=== PATIENT | female | born 1955 | race Caucasian/White ===

== ENCOUNTER 2023-04-21 05:13 | Observation (INO) ==
--- NOTE | 2023-03-01 16:16 | PAT Medication Instructions ---
Medication Instructions Date of Service March 01, 2023 Home Medications atorvastatin 40 mg tablet 40 mg PO HS biotin 5,000 mcg disintegrating tablet 5,000 mcg PO QAM calcium polycarbophil 625 mg tablet (FiberCon) 625 mg PO QAM cholecalciferol (vitamin D3) 50 mcg (2,000 unit) capsule (Vitamin D3) 50 mcg PO QAM diphenhydramine HCl 25 mg capsule (Benadryl) 25 mg PO HS PRN allergies donepezil 5 mg tablet (Aricept) 5 mg PO HS famotidine 20 mg tablet 20 mg PO HS gabapentin 300 mg tablet,extended release 24 hr 300 mg PO HS levothyroxine 50 mcg tablet 50 mcg PO QAM lorazepam 0.5 mg tablet (Ativan) 0.5 mg PO HS PRN sleep/anxiety losartan 25 mg tablet 25 mg PO HS magnesium 200 mg tablet 400 mg PO QAM meloxicam 15 mg tablet 15 mg PO HS metoprolol succinate 25 mg tablet,extended release 24 hr 25 mg PO HS omega 1-ohy-vlb-fish oil 1,200 mg (144 mg-216 mg) capsule (Fish Oil) 1 cap PO QAM omeprazole 40 mg capsule,delayed release 40 mg PO QAM riboflavin (vitamin B2) 100 mg tablet (Vitamin B-2) 400 mg PO QAM ASK your surgeon for instructions meloxicam 15 mg tablet 15 mg PO HS STOP taking 2 weeks before surgery biotin 5,000 mcg disintegrating tablet 5,000 mcg PO QAM omega 2-wqr-[id number]-fish oil 1,200 mg (144 mg-216 mg) capsule (Fish Oil) 1 cap PO QAM DO NOT take the morning of surgery calcium polycarbophil 625 mg tablet (FiberCon) 625 mg PO QAM cholecalciferol (vitamin D3) 50 mcg (2,000 unit) capsule (Vitamin D3) 50 mcg PO QAM magnesium 200 mg tablet 400 mg PO QAM riboflavin (vitamin B2) 100 mg tablet (Vitamin B-2) 400 mg PO QAM Take morning of surgery With a small sip of water, OTHERWISE NOTHING TO EAT OR DRINK AFTER MIDNIGHT: levothyroxine 50 mcg tablet 50 mcg PO QAM omeprazole 40 mg capsule,delayed release 40 mg PO QAM Take evening before surgery atorvastatin 40 mg tablet 40 mg PO HS diphenhydramine HCl 25 mg capsule (Benadryl) 25 mg PO HS PRN allergies (if needed) donepezil 5 mg tablet (Aricept) 5 mg PO HS famotidine 20 mg tablet 20 mg PO HS gabapentin 300 mg tablet,extended release 24 hr 300 mg PO HS lorazepam 0.5 mg tablet (Ativan) 0.5 mg PO HS PRN sleep/anxiety (if needed) losartan 25 mg tablet 25 mg PO HS metoprolol succinate 25 mg tablet,extended release 24 hr 25 mg PO HS Other Notes If you have any questions please call us at [phone] or [phone] or [phone] or [phone]
--- NOTE | 2023-03-08 10:24 | Anesthesiology Consultation ---
Date of Service March 08, 2023 Assessment & Plan (1) Encounter for pre-operative examination: Chart Review Chart Review: Acceptable Risk for Surgery (pending PCP clearance scheduled 03/14/23 and response regarding hyperkalemia ) and Patient seen in Pre Admission Testing - Awaiting PCP clearance 03/14/23 ([facility])- please fax preop testing to PCP office (need response on hyperkalemia) - Patient not an idea OPJ candidate (currently 23 hour observation) Per PAT appt on 03/08/23, no recent illness/disease exposures, illness related symptoms, or recent illness/disease positive tests. Will leave to surgeon's d iscretion if preop Covid testing needed Teaching & Discussion Pre-Anesthesia Teaching/Discussion Notes: Instructed NPO after midnight before surgery,except medications with 15 cc of water. Medication instructions provided according to the [facility] guidelines. History Surgery Operation Date: 04/06/23 09:30 Proposed Procedures p Right Total Knee Arthroplasty - Maverick Zavala MD Height/Weight Height: 5 ft 1 in Weight: 77.2 kg Allergies Allergy/AdvReac Type Severity Reaction Status Date / Time Sulfa (Sulfonamide Allergy systemic Verified 03/01/23 14:25 Antibiotics) yeast infection, rash Medications Home Medications Medication Instructions Recorded Confirmed Last Taken atorvastatin 40 mg tablet 40 mg PO HS 03/01/23 03/01/23 Unknown biotin 5,000 mcg disintegrating 5,000 mcg PO QAM 03/01/23 03/01/23 Unknown tablet calcium polycarbophil 625 mg 625 mg PO QAM 03/01/23 03/01/23 Unknown tablet (FiberCon) cholecalciferol (vitamin D3) 50 50 mcg PO QAM 03/01/23 03/01/23 Unknown mcg (2,000 unit) capsule (Vitamin D3) diphenhydramine HCl 25 mg capsule 25 mg PO HS PRN allergies 03/01/23 03/01/23 Unknown (Benadryl) donepezil 5 mg tablet (Aricept) 5 mg PO HS 03/01/23 03/01/23 Unknown famotidine 20 mg tablet 20 mg PO HS 03/01/23 03/01/23 Unknown gabapentin 300 mg tablet,extended 300 mg PO HS 03/01/23 03/01/23 Unknown release 24 hr levothyroxine 50 mcg tablet 50 mcg PO QAM 03/01/23 03/01/23 Unknown lorazepam 0.5 mg tablet (Ativan) 0.5 mg PO HS PRN sleep/anxiety 03/01/23 03/01/23 Unknown losartan 25 mg tablet 25 mg PO HS 03/01/23 03/01/23 Unknown magnesium 200 mg tablet 400 mg PO QAM 03/01/23 03/01/23 Unknown meloxicam 15 mg tablet 15 mg PO HS 03/01/23 03/01/23 Unknown metoprolol succinate 25 mg 25 mg PO HS 03/01/23 03/01/23 Unknown tablet,extended release 24 hr omega 9-lyc-uww-fish oil 1,200 mg 1 cap PO QAM 03/01/23 03/01/23 Unknown (144 mg-216 mg) capsule (Fish Oil) omeprazole 40 mg capsule,delayed 40 mg PO QAM 03/01/23 03/01/23 Unknown release riboflavin (vitamin B2) 100 mg 400 mg PO QAM 03/01/23 03/01/23 Unknown tablet (Vitamin B-2) Past Medical History Medical History Seasonal allergies Stable currently Snoring no witnessed apnea no hx of sleep study GERD (gastroesophageal reflux disease) well controlled and stable Hypothyroidism Arthritis Hyperlipidemia Hypertension Migraines Exercise / Class Metabolic Activity II 4-5 Yardwork/Stairs/Walk up hill (one flight of stairs - no chest pain or SOB ) Past Surgical History Surgical History History of dilatation and curettage Hx of hammer toe correction History of bilateral tubal ligation Hx of section x2 History of esophagogastroduodenoscopy (EGD) Hx of colonoscopy Hx of oral surgery H/O wisdom tooth extraction x1 Past Anesthesia History No Hx of Anesthesia Complications and No Family Hx of Anesthesia Complications History of PONV No Hx of PONV and Hx of Motion Sickness (mild ) Social History Smoking Status: Never smoker Do You Dip or Chew Tobacco: No Hx Alcohol Use: No Hx Substance Use: No substance use type: does not use Review of Systems - Palpitations - had event monitor last month - no arrhythmias Patient denies chest pain, shortness of breath, dyspnea on exertion, cough, wheezing. No hx of seizures, stroke, HI. No hx of blood clots or blood transfusions Physical Exam Vital Signs VITALS BP 169/89 (patient will recheck BP later today at home and call if elevated; has PCP preop appt 03/14/23) P 54 TEMP 97.4 SP02 98% RESP 16 Constitutional no acute distress ENMT Mouth: no TMJ clicking Thyromental Distance: < 3.5 Finger Breadths (3.0) Mallampati Class: III Crowns to side teeth and molars Neck + limited neck extension (mild) Respiratory normal respiratory effort; no respiratory distress Auscultation: lungs clear to auscultation bilaterally; no wheezes Cardiovascular Rate/Rhythm: regular rate and regular rhythm Heart Sounds: no murmur Vessels: no carotid bruit Musculoskeletal Spine: no pain with cervical ROM Extremities: extremities normal to inspection Psychiatric Orientation: alert Lab Results Anesthesia Preop Results Results Anesthesia Widget: WBC 5.40 K/ul (4.8-10.8) 03/08/23 Hgb 14.2 g/dl (12.0-16.0) 03/08/23 Hct 41.2 % (37.0-47.0) 03/08/23 Plt 212 K/uL (130-400) 03/08/23 Na 138 mmol/L (136-145) 03/08/23 K 5.2 mmol/L (3.5-5.1) H 03/08/23 Cl 104 mmol/L (98-107) 03/08/23 CO2 29 mmol/L (21-32) 03/08/23 BUN 19 mg/dl (6-23) 03/08/23 Creat 0.93 mg/dl (0.6-1.2) 03/08/23 Glucose Level 90 mg/dl (70-99(Fasting)) 03/08/23 PT 10.5 Seconds (9.0-12.0) 03/08/23 PTT 27.7 Seconds (21.0-31.0) 03/08/23 INR 1.0 (0.9-1.1) 03/08/23 Urine Color Yellow 03/08/23 Urine Appearance Clear (Clear) 03/08/23 Urine pH 7.0 (4.5-7.5) 03/08/23 Urine Specific [place] 1.006 (1.000-1.030) 03/08/23 Urine Protein Negative (Negative) 03/08/23 Urine Glucose (UA) Negative (Negative) 03/08/23 Urine Ketones Negative (Negative) 03/08/23 Urine Blood Negative (Negative) 03/08/23 Urine Nitrite Negative (Negative) 03/08/23 Urine Bilirubin Negative (Negative) 03/08/23 Urine Urobilinogen Negative (Negative) 03/08/23 Urine Leukocyte Esterase Negative (Negative) 03/08/23 Blood Type A Positive 03/08/23 Antibody Screen NEGATIVE 03/08/23 Testing Laboratory Results - Hyperkalemia- did inform PCP's office via phone- has preop appt 03/14/23 Electrocardiogram Date: 03/08/23 Findings: + SB @ (55bpm) Left axis deviation Chest X-Ray Date: 03/08/23 Findings: + NAD FINDINGS: Cardiac mediastinal and hilar silhouettes are within normal limits. No pneumothorax, pleural effusion, airspace consolidation or pulmonary edema. Mild hyperinflation. The bones appear grossly intact Other Testing Event monitor 12/14/22= Predominant underlying rhythm was Sinus Rhythm with average heart rate 60 BPM. Occasional (17) Supraventricular Tachycardia runs occurred, the longest lasting 17 beats. The mechanism of Supraventricular Tachycardia appeared to be Atrial Tachycardia. Supraventricular Tachycardia was detected within +/- 45 seconds of symptomatic patient event(s). (Per [facility] records- PCP aware- recommend continuing Metoprolol)
--- NOTE | 2023-04-19 11:25 | History & Physical Report ---
Date of Service April 19, 2023 Assessment & Plan (1) Primary osteoarthritis of right knee: Plan: Treatment options discussed with the patient. She has failed conservative measures and would like to proceed with surgery. Risks, benefits and alternatives to surgery including but not limited to infection, DVT, pain, stiffness, need for revision surgery, damage to blood vessels, damage to nerves, PE, , were discussed with the patient and they wish to proceed. Plan on right total knee arthroplasty scheduled for 04/21/22 at [facility] with Dr. Zavala. Plan on aspirin 81mg twice daily post op for DVT prophylaxis. Plan on home health vs outpatient therapy post op. All questions answered. She will follow up post op. History of Present Illness Chief Complaint: Right knee pain Primary Care Provider: NO PCP 67yo female with PMHx significant for hypothyroid, HTN, high cholesterol, migraines who presents with ongoing right knee pain. Pain is interfering with her daily activity. She has failed conservative measures. She would like to proceed with surgical management. Patient denies headaches, sweats, fevers, chil ls, double vision, blurred vision, cough, sore throat, dysphagia, chest pain, sob, wheezing, n/v/d/c, numbness, tingling, fatigue, urinary symptoms, mood disorders. ROS positive for right knee pain and stiffness. Allergies Allergy/AdvReac Type Severity Reaction Status Date / Time Sulfa (Sulfonamide Allergy systemic Verified 03/01/23 14:25 Antibiotics) yeast infection, rash Home Medications Medication Instructions Recorded Confirmed Type atorvastatin 40 mg tablet 40 mg PO HS 03/01/23 03/01/23 History biotin 5,000 mcg disintegrating 5,000 mcg PO QAM 03/01/23 03/01/23 History tablet calcium polycarbophil 625 mg 625 mg PO QAM 03/01/23 03/01/23 History tablet (FiberCon) cholecalciferol (vitamin D3) 50 50 mcg PO QAM 03/01/23 03/01/23 History mcg (2,000 unit) capsule (Vitamin D3) diphenhydramine HCl 25 mg capsule 25 mg PO HS PRN allergies 03/01/23 03/01/23 History (Benadryl) donepezil 5 mg tablet (Aricept) 5 mg PO HS 03/01/23 03/01/23 History famotidine 20 mg tablet 20 mg PO HS 03/01/23 03/01/23 History gabapentin 300 mg tablet,extended 300 mg PO HS 03/01/23 03/01/23 History release 24 hr levothyroxine 50 mcg tablet 50 mcg PO QAM 03/01/23 03/01/23 History lorazepam 0.5 mg tablet (Ativan) 0.5 mg PO HS PRN sleep/anxiety 03/01/23 03/01/23 History losartan 25 mg tablet 25 mg PO HS 03/01/23 03/01/23 History magnesium 200 mg tablet 400 mg PO QAM 03/01/23 03/01/23 History meloxicam 15 mg tablet 15 mg PO HS 03/01/23 03/01/23 History metoprolol succinate 25 mg 25 mg PO HS 03/01/23 03/01/23 History tablet,extended release 24 hr omega 8-xyh-dpu-fish oil 1,200 mg 1 cap PO QAM 03/01/23 03/01/23 History (144 mg-216 mg) capsule (Fish Oil) omeprazole 40 mg capsule,delayed 40 mg PO QAM 03/01/23 03/01/23 History release riboflavin (vitamin B2) 100 mg 400 mg PO QAM 03/01/23 03/01/23 History tablet (Vitamin B-2) Past Med/Surg History Medical History Seasonal allergies Stable currently Snoring no witnessed apnea no hx of sleep study GERD (gastroesophageal reflux disease) well controlled and stable Hypothyroidism Arthritis Hyperlipidemia Hypertension Migraines Surgical History History of dilatation and curettage Hx of hammer toe correction History of bilateral tubal ligation Hx of section x2 History of esophagogastroduodenoscopy (EGD) Hx of colonoscopy Hx of oral surgery H/O wisdom tooth extraction x1 Social History Smoking Status: Never smoker Second Hand Exposure: Yes (hx growing up and thru 20's and 30's); Do You Dip or Chew Tobacco: No; Tobacco Cessation Education Requested by Patient: No Hx Alcohol Use: No Hx Substance Use: No Preferred Language: [place] Communication Ability: Effective Career Discovery Teacher Required: No Beliefs That Will Affect Care: None Current Living Situation: Spouse Other Information That Helps Us Care for You: No Feels Safe at Home: Yes Safety Concerns: Feels Safe At This Time Assistive Devices: Glasses Review of Systems All systems reviewed & are unremarkable except as noted in HPI & below Physical Exam Constitutional: well developed and well nourished; no acute distress Eyes: PERRL, conjunctivae normal, anicteric sclerae ENMT: external ear and nose normal, oropharynx normal Neck: trachea midline, no thyromegaly Respiratory: normal respiratory effort, lungs clear to auscultation Cardiovascular: RRR, no murmur, no edema Musculoskeletal: Right knee: Varus alignment. mild effusion. Tenderness medial joint line. ROM 0- 135 degrees. Stable to valgus and varus stress. Emilie's is guarded. Skin: no rashes, warm and dry Neurologic: patellar DTR's 2+ bilat, sensation intact Psychiatric: A+Ox3, euthymic affect Results & Data Diagnostic Findings right knee radiographs demonstrate arthritic changes medial compartment with joint space narrowing. MRI demonstrates advanced osteoarthritis in her anterior medial knee compartment. Posterior cartilage is intact but anteriorly she has [id number] with no articular cartilage on the femoral condyle or tibial justina teau with bone edema on the femoral condyle and tibia and knee effusion complex degenerative macerated type meniscus tear with extrusion medially and ruptured Gerardo's cyst
--- OUTSIDE RECORDS SUMMARY | 2023-04-21 05:44 | External Medical Summary | Summary of Care ---
Author Name Unknown Organization [facility] Address [address] [place] [address] Phone [phone] Care Team Providers Care Spool Fixer Name Role Phone Elizabeth Sheffield PA-C Primary Care Provider Reason for Visit * Reason Comments pre-op exam Pt is here for a pre -op exam for surgery on 04/[address] Zavala for R total knee Encounter Details Date Type Department Care Team (Late st Contact Info) Description 04/07/2023 10:20 AM EST Office Visit [facility] [address] [phone] Elliott Ruggiero CRNP [address] [phone] Preop examination* Allergies Active Allergy Reactions Criticality Noted Date Comments Adhesive Tape 08/30/2012 Blisters Bactrim Rash 07/04/2012 Thrush, vaginal yeast Amlodipine Nausea/vomiting,Othe r (Please comment) Medium 12/18/2014 Headaches. Only nausea/no vomiting. Sulfamethoxazole 07/05/2012 Other reaction(s): rash,yeast infection Trimethoprim 07/05/2012 Other reaction(s): rash,yeast infection documented as of this encounter (statuses as of 04/07/2023) Medications Medication Sig Dispensed Refills Start Date End Date Status FISH OIL 1200 MG PO CAPS one tab by mouth each day 0 Active FIBERCON 625 MG PO TABS 1 tab by mouth daily 0 Active Riboflavin 400 MG Oral Capsule Take 1 Capsule by mouth in the morning. 0 Active Magnesium 100 MG CapsuleIndications:ASHLEY ES 250 MG Take 1 Capsule by mouth in the morning. 0 Active Vitamin D3 50 MCG (1999 UT) Oral CapsuleIndications:Vit turk D deficiency Take 1 Cap by mouth daily. 30 Cap 5 08/20/2020 Active Biotin 5 MG Oral Tablet Take 1 Tablet by mouth in the morning. 0 Active Famotidine 20 MG Oral Tablet (Pepcid)Indications:Dy spepsia Take 1 Tablet by mouth every morning. 90 Tablet 3 05/24/2022 Active Omeprazole 40 MG Oral Capsule Delayed Release (PriLOSEC)Indications: GERD (gastroesophageal reflux disease) TAKE 1 CAPSULE DAILY 90 Capsule 3 05/26/2022 Active Atorvastatin Calcium 40 MG Oral Tablet (Lipitor) Take 1 Tablet by mouth in the morning. 90 Tablet 3 06/14/2022 Active Losartan Potassium 25 MG Oral Tablet (Cozaar)Indications:Es sential hypertension with goal blood pressure less than 140/90 Take 1 Tablet by mouth in the morning. 90 Tablet 3 08/05/2022 Active SUMAtriptan Succinate 50 MG Oral Tablet (Imitrex) take 1 tablet by mouth every 2 hours as needed for migraine, take 1 at onset and may repeat after 2 hours, max of 200 mg (4 tabs) a day. 10 Tablet 5 11/08/2022 Active LORazepam 0.5 MG Oral Tablet (Ativan)Indications:Ge neralized anxiety disorder Take 1 Tablet by mouth 3 times a day as needed for Anxiety. 30 Tablet 0 12/14/2022 Active Metoprolol Succinate ER 25 MG Oral Tablet Extended Release 24 Hour (toPROL XL)Indications:HTN, goal below 140/90 TAKE 1 TABLET DAILY 90 Tablet 3 12/27/2022 Active Meloxicam 15 MG Oral TabletIndications:Inte rvertebral lumbar disc disorder with myelopathy, lumbar region TAKE 1 TABLET IN THE MORNING WITH FOOD 90 Tablet 1 03/04/2023 Active Gabapentin 300 MG Oral Capsule (Neurontin) TAKE 1 CAPSULE THREE TIMES A DAY 270 Capsule 3 03/11/2023 Active Levothyroxine Sodium 50 MCG Oral Tablet (Levoxyl)Indications:A cquired hypothyroidism TAKE 1 TABLET DAILY FIRST THING IN THE MORNING 90 Tablet 1 03/28/2023 Active Donepezil HCl 5 MG Oral Tablet (Aricept)Indications:D ementia without behavioral disturbance (HCC) TAKE 1 TABLET DAILY WITH LARGEST MEAL OF THE DAY 90 Tablet 3 03/28/2023 Active documented as of this encounter (statuses as of 04/07/2023) Active Problems Problem Noted Date Diagnosed Date Dementia without behavioral disturbance 04/07/20 23 MEDICATION USE AGREEMENT 12/14/2022 Overview: Rarely takes for sleep. Takes about 1 week Acquired hypothyroidism 02/25/2021 Vitamin D deficiency 02/25/2021 Stage 3a chronic kidney disease 08/20/2020 Obesity, Class I, BMI 30.0-34.9 (see actual BMI) 02/16/2017 Generalized anxiety disorder 02/21/2014 Overview: ICD-10 update of inactive term Intervertebral lumbar disc d isorder with myelopathy, lumbar region 02/21/2014 Gastroesophageal reflux disease without esophagi tis 02/21/2014 Pure hypercholesterolemia 02/21/2014 Migraine with aura and witho ut status migrainosus, not intractable 02/21/2014 Essential hypertension with goal blood pressure less than 140/90 02/21/2014 documented as of this encounter (statuses as of 04/07/2023) Resolved Problems Problem Noted Date Diagnosed Date Resolved Date Dementia without behavioral disturbance 02/07/2019 12/14/2022 Overview: ICD-10 update of inactive term Kidney disease, chronic, sta ge III (GFR 30-59 ml/min) 02/20/2018 08/20/2020 Overview: Per CKD protocol #1 Lumbago 02/21/2014 08/15/2019 documented as of this encounter (statuses as of 04/07/2023) Immunizations Name Administration Dates Next Due COVID-19 mRNA, LNP-s, No Pre serve, 2-Dose Series (Moderna) 05/23/2020,04/25/2020 COVID-19, mRNA, LNP-s, PF, B ooster, 100mcg/0.5mg (Moderna) 04/08/2021 Covid-19, Mrna, Lnp-s, Pf, B ivalent, 50 Mcg, IM, 12 yrs and above (Moderna) 04/19/2022 DTaP Dipth/Tet/Acell Pertussis (Infanrix), Peds 09/16/2010 Pneumococcal Conjugate Vacc, 13 Valent (Prevnar) 08/15/2019 Pneumococcal Polysaccharide PPV23 (Pneumovax) 08/20/2020 Season Influenza, Quad, PF, Adjuvanted, 65+ Yrs, IM (FLUAD) 01/18/2020 Seasonal Influenza, PF, 6 M & above, IM , (FluLaval or Fluzone) 02/07/2019,02/01/2018 Seasonal Influenza, Quadriva lent Hd (Fluzone Hd) 12/14/2022,03/10/2022 Seasonal Influenza, Quadriva lent, No Preserve, IM 12/15/2016,02/06/2016,03/19/2015 Seasonal Influenza, Split, I IV3, With Preserve, Inj 03/13/2014,02/28/2013,02/16/2012 Seasonal Influenza, Trivalen t, Adjuvanted, 65+ yrs 01/23/2021 TDAP (age 11 and older)(Adacel) 10/06/2010 Varicella Zoster Vaccine (Adult) 12/04/2014 Zoster Vaccine Recombinant (Shingrix) 02/25/2021 ,08/20/2020 documented as of this encounter Social History Tobacco Use Types Packs/Day Years Used Date Smoking Tobacco: Never Smokeless Tobacco: Never Tobacco Cessation:Counseling Given: Not Answered Alcohol Use Standard Drinks/Week Comments Not Currently 0 (1 standard drink = 0.6 oz pur e alcohol) Rarely PHQ-2 Answer Date Recorded PHQ Adult Total Score 0 12/14/2022 Hunger Vital Sign Answer Date Recorded Within the past 12 months, y ou worried that your food would run out before you got the money to buy more. Never true 04/06/20 23 Within the past 12 months, t he food you bought just didn't last and you didn't have money to get more. Never true 04/06/2023 Sex and Gender Information Value Date Recorded Sex Assigned at Female 08/27/2021 12:31 PM EDT Gender Identity Female 08/27/2021 12:31 PM EDT Sexual Orientation Straight 08/27/2021 12 :31 PM EDT Job Start Date Occupation Industry Not on file Not on file Not on file documented as of this encounter Last Filed Vital Signs Vital Sign Reading Time Taken Comments Blood Pressure 114/72 04/07/2023 10:19 AM EST Pulse 51 04/07/2023 10:19 AM EST Temperature 35.9 C (96.6 F) 04/07/2023 10:[address] Respiratory Rate 18 04/07/2023 10:19 AM EST Oxygen Saturation 100% 04/07/2023 10:19 AM EST Inhaled Oxygen Concentration - - Weight 76.9 kg (169 lb 9.6 oz) 04/07/2023 10:19 AM EST Height 152.4 cm (5') 04/07/2023 10:19 AM EST Body Mass Index 33.12 04/07/2023 10:19 AM EST documented in this encounter Progress Notes * Elliott Ruggiero CRNP - 04/07/2023 10:27 AM EST Images from the original note were not included. Pre-Operative Medical Evaluation Brief Clinical History Ms. Rubio is a 67 year old woman last seen in Family Medicine 3 months ago (12-14-22). She has h/o CKD stage 3 and Stage 3a chronic kidney disease (HCC), due for eval of Dementia without behavioral disturbance (HCC). No specific complaints today. Continues to take all medications as prescribed. No specific complaints related to her medications Procedure Information Type of Surgery: Right total knee replacement Referring Physician / Surgeon: Dr. Zavala Date of procedure: 04/21/2023 Brief History of Present Illness: Right knee has been getting progressively more painful. Review of Systems: Constitutional ROS: No change in weight, No weakness, No fatigue, and No fevers, sweats, or chills Eye ROS: No recent significant change in vision, No eye pain, redness, discharge, No diplopia, No h/o cataracts, and No h/o glaucoma Ear ROS: No ear pain, No drainage, No tinnitus or vertigo, and No recent change in hearing Mouth/Throat ROS: No bleeding gums, No thrush, or No sore throat Pulmonary ROS: No cough, sputum, or hemoptysis, No wheezing, No rales, No shortness of breath, and No recent change in breathing Cardiovascular ROS: No chest pain, No shortness of breath, No dyspnea on exertion, No orthopnea, Noparoxysmal nocturnal dyspnea, No edema, No palpitations, and No syncope Gastrointestinal ROS: No abdominal pain, No change in bowel habits, No significant heartburn, No significant change in appetite, No nausea, vomiting, diarrhea, or constipation, No hematemesis, No blood in stools or black tarry stools, No abdominal bloating or early satiety, and No dysphagia Genito-Urinary Female ROS: No dysuria, No frequency, No incontinence, and No urgency Musculoskeletal/Extremities ROS: Positive for arthritis bilateral knees Skin/Integumentary ROS: No edema, No rash, and No itching Neurologic ROS: Normal balance, No headaches, No seizures, and No weakness Endocrine ROS: No heat intolerance, No cold intolerance, No thyroid trouble, and No excessive thirst or urination Medical History Problem List: MEDICATION USE AGREEMENT (12/14/2022) Acquired hypothyroidism (02/25/2021) Vitamin D deficiency (02/25/2021) Stage 3a chronic kidney disease ([facility]) (08/20/2020) Dementia without behavioral disturbance ([facility]) (02/07/2019) Kidney disease, chronic, stage III (GFR 30-59 ml/min) ([facility]) (2017) Obesity, Class I, BMI 30.0-34.9 (see actual BMI) (02/16/2017) Generalized anxiety disorder (02/21/2014) Intervertebral lumbar disc disorder with myelopathy, lumbar region (02/21/2014) Lumbago (02/21/2014) Gastroesophageal reflux disease without esophagitis (02/21/2014) Pure hypercholesterolemia (02/21/2014) Migraine with aura and without status migrainosus, not intractable (02/21/2014) Essential hypertension with goal blood pressure less than 140/90 () Current Medications Donepezil HCl 5 MG Oral Tablet (Aricept), TAKE 1 TABLET DAILY WITH LARGEST MEAL OF THE DAY Levothyroxine Sodium 50 MCG Oral Tablet (Levoxyl), TAKE 1 TABLET DAILY FIRST THING IN THE MORNING Gabapentin 300 MG Oral Capsule (Neurontin), TAKE 1 CAPSULE THREE TIMES A DAY Meloxicam 15 MG Oral Tablet, TAKE 1 TABLET IN THE MORNING WITH FOOD Metoprolol Succinate ER 25 MG Oral Tablet Extended Release 24 Hour (toPROL XL), TAKE 1 TABLET DAILY LORazepam 0.5 MG Oral Tablet (Ativan), 0.5 mg, Oral, TID PRN SUMAtriptan Succinate 50 MG Oral Tablet (Imitrex), take 1 tablet by mouth every 2 hours as needed for migraine, take 1 at onset and may repeat after 2 hours, max of 200 mg (4 tabs) a day. Losartan Potassium 25 MG Oral Tablet (Cozaar), 25 mg, Oral, Daily(AM) Atorvastatin Calcium 40 MG Oral Tablet (Lipitor), 40 mg, Oral, Daily(AM) Omeprazole 40 MG Oral Capsule Delayed Release (PriLOSEC), TAKE 1 CAPSULE DAILY Famotidine 20 MG Oral Tablet (Pepcid), 20 mg, Oral, Daily 0600 Vitamin D3 50 MCG (2000 UT) Oral Capsule, 2,000 Units, Oral, Daily(AM) Magnesium 100 MG Capsule, 1 Capsule, Oral, Daily(AM) Riboflavin 400 MG Oral Capsule, 1 Capsule, Oral, Daily(AM) FIBERCON 625 MG PO TABS, 1 tab by mouth daily Biotin 5 MG Oral Tablet, 5 mg, Oral, Daily(AM) (Patient not taking: Reported on 04/07/2023) FISH OIL 1200 MG PO CAPS, one tab by mouth each day (Patient not taking: Reported on 04/07/2023) Allergies: Norvasc [amlodipine], Adhesive tape, Bactrim, Sulfamethoxazole, and Trimethoprim Past Medical History: has a past medical history of Anxiety, Arthritis, BPPV (benign paroxysmal positional vertigo), Chickenpox, Esophageal reflux, Essential hypertension with goal blood pressure less than 140/90 (02/21/2014), GERD (gastroesophageal reflux disease), Intervertebral disc disorder of lumbar region with myelopathy, Lumbago, Measles, Migraine, Mumps, Obesity, Paresthesias, and Pure hypercholesterolemia (02/21/2014). Past Surgical History: has a past surgical history that includes Colonoscopy, Diagnostic (Rectum) (07/05/2012); delivery; dilation and curettage (d&c) (1983); repair of hammertoe, one toe; Hysteroscopy w/Biopsy and/or Polypectomy w/wo D&C (N/A, 07/05/2018); EGD, Flexible, Diagnostic (N/A, 02/13/2020); and EGD, Flexible, Diagnostic (N/A, 02/13/2020). Social History: reports that she has never smoked. She has never used smokeless tobacco. She reports that she does not currently use alcohol. She reports that she does not use drugs. Family History: family history includes Arrhythmia in her father and grandmother (maternal); Colon cancer in her grandmother (maternal); Dementia in her mother; Heart Disease in her father; Heart Disorder in her mother; Heart attack in her father and grandmother (paternal); Heart disease in an other family member;Hypertension in her brother, grandmother (maternal), and mother; Leukemia in her grandfather (maternal); Renal cancer in her brother; Rheumatic fever in her mother; Stroke in her grandmother (maternal); high cholesterol in her brother; high cholesterorl in her mother; thyroid disease in her mother. Anesthesia History Type of Anesthesia: General Endotracheal and Caudal block Anesthesia reaction: No History of surgical complications: none Personal history of venous thromboembolic disease: none Physical Exam Vitals: 04/07/23 1019 Temp: 35.9 C (96.6 F) Pulse: 51 Resp: 18 SpO2: 100% BP: 114/72 BMI: 33.12 General: alert, healthy, and no distress Head: Normocephalic, No masses, lesions, tenderness or abnormalities Eye Exam: PERRLA, extraocular movements intact, conjunctiva are pink and non- injected, sclera clear Ears: External ears normal, Canals clear, TM's Normal Oropharynx: no exudate, no erythema, lips, buccal mucosa, and tongue normal, and mucous membranes are moist Neck: supple, no adenopathy, thyroid normal size, non-tender, without nodularity Lymph: no palpable lymphadenopathy Heart: regular rate & rhythm, no murmur, and no gallops Lungs: chest symmetric with normal AP diameter, no chest deformities noted, no chest wall tenderness, lungs clear to auscultation Pulses: radial=2/4 Abdomen: abdomen soft, non-tender, normal bowel sounds, and no masses or organomegaly Extremities: less than 2 second capillary refill, no joint deformities, effusion, or inflammation Neuro Exam: alert & oriented x 3 with fluent speech, no focal motor/sensory deficits, gait normal, reflexes normal and symmetric Skin: skin color, texture, turgor are normal, no rashes or significant lesions Labs reviewed and are significant for: Latest Reference Range & Units 12/15/22 09:03 Triglycerides <=174 mg/dL 146 Cholesterol <200 mg/dL 273 (H) Non-HDL Cholesterol <=159 mg/dL 202 (H) HDL Cholesterol >49 mg/dL 71 LDL Cholesterol <=129 mg/dL 173 (H) Sodium 135 - 146 mmol/L 137 Potassium 3.5 - 5.1 mmol/L 6.0 (H) Chloride 98 - 107 mmol/L 101 CO2 22 - 32 mmol/L 28 BUN 6 - 20 mg/dL 17 Creatinine 0.5 - 1.0 mg/dL 1.0 Estimated Glomerular Filtration Rate >=60 mL/min 60 Anion Gap 7 - 15 mmol/L 8 Glucose 70 - 120 mg/dL 94 Calcium 8.4 - 10.2 mg/dL 9.6 Phosphorus 2.5 - 4.8 mg/dL 4.1 Protein 6.0 - 8.3 g/dL 6.3 25-Hydroxy Vitamin D >19 ng/mL 33 25-HYDROXY VITAMIN D Rpt TSH 0.27 - 4.20 uIU/mL 1.41 CBC Rpt WBC 4.00 - 10.80 K/uL 6.32 HGB 12.0 - 15.3 g/dL 13.7 HCT 36.0 - 45.2 % 42.2 MCV 81.5 - 97.5 fL 93.6 PLT 140 - 400 K/uL 244 Albumin 3.8 - 5.0 g/dL 4.3 AST 10 - 35 U/L 19 ALT 10 - 35 U/L 24 Alkaline Phosphatase 35 - 130 U/L 91 Bilirubin, Total <=1.2 mg/dL 0.3 Surgical Risk Scoring Revised Cardiac Risk Index (RCRI) High-risk type of surgery (examples include vascular and any open intraperitoneal or intrathoracic procedures): 0=No History of ischemic heart disease (history of myocardial infarction or positive exercise test, current compliant of chest pain considered to be secondary to myocardia ischemia, use of nitrate therapy, or ECG with pathological Q waves; do not count prior coronary revascularization procedure unless one of the other criteria for ischemic heart disease is present): 0=No History of heart failure: 0=No History of cerebrovascular disease: 0=No Diabetes mellitus requiring treatment with insulin: 0=No Preoperative serum creatinine >2.0 mg/dL (177 micromol/L): 0=No Pt has revised cardiac index score of: No Risk Factors- 0.4% (95% CI: 0.1-0.8) Assessment and Plan (Z01.818) Preop examination (primary encounter diagnosis) Plan: Based on the patient's HPI and physical examination I feel that the patient is medically optimized for the given procedure. I have no specific concerns at this time. Pt is to follow up with PCP as scheduled. Pt is to notify us of any concerning medical symptoms. Pt expresses understanding and satisfaction with plan. Functional Assessment They are able to walk up a flight of stairs, walk two blocks at a moderate pace, do heavy house work like vacuuming, and grocery shop. The patient's functional status is good (greater than 4 METS). 1 MET: 4 METs: 4-10 METs: Can take care of self, such as eat, dress or use the toilet. Can walk to block or go up a flight of steps. Can do heavy house work. Surgical Risk Assessment Patient is low medical risk for the listed procedure. Medication adjustments: none Additional consults or testing: None I spent a total of 20-29 minutes (exact time 25 mins) on the date of service in preparation, delivery, and documentation of the care provided to Georgia Rubio excluding any time spent in the performance of separately billed services. HILDA Pham [facility] documented in this encounter Nursing Notes * Timur Campbell LPN - 04/07/2023 10:19 AM EST Chief Complaint Patient presents with pre-op exam Pt is here for a pre-op exam for surgery on 04/[address] Zavala for R total knee documented in this encounter Plan of Treatment Upcoming Encounters Date Type Department Care Team (Late st Contact Info) Description 06/15/2023 11:20 AM EST Office Visit [facility] [address] [phone] Elizabeth Sheffield PA-C [address] [phone] Scheduled Procedures Name Priority Associated Diagnoses Date/Ti me COLONOSCOPY FLEXIBLE PROXIMA L DIAGNOSTIC Recall Special screening for malignant neoplasms, colon Health Maintenance Due Date Last Done Comments Cologuard 1999 Fecal Occult Blood Test 1999 Sigmoidoscopy 1999 DTaP,Tdap,and Td Vaccines (3 - Td or Tdap) 10/06/2020 10/06/2010, 09/16/2010 Colonoscopy 07/05/2022 07/05/2012, 07/05/2012 Colorectal Cancer Screening 07/05/2022 COVID-19 Vaccine ( season) 2022 04/19/2022, 04/08/2021, 05/23/2020, Additional history exists GFR 06/15/2023 12/15/2022, 10/09, 02/24/2022, Additional history exists Mammogram 08/18/2023 08/17/2022, 07/11, 06/18/2020, Additional history exists Depression Screening 12/15/2023 12/14/2022 CKD HGB USE SMARTSET 43252 12/16/202312/15, 11/11/2021, 11/11/2021, Additional history exists CKD PHOS USE SMARTSET 79887 12/16/2023 09/09/2022, 08/19/2021, 02/20/2020, Additional history exists TSH 12/16/2023 12/15/2022, 02/09, 08/19/2021, Additional history exists Albumin/Creatinine Ratio 12/21/2023 12/20/2022, 02/11 DXA Scan 09/13/2024 09/14/2019 Diabetes Screening 12/15/2025 12/15/2022, 0 10/20/2022, 10/20/2022, Additional history exists Lipid Panel 12/16/2027 12/15/2022, 02/09, 08/19/2021, Additional history exists Pneumococcal Vaccine: 65+ Years Completed 08/20/2020, 08/15/2019 Zoster Vaccines Completed 02/25/2021, 08/09, 12/04/2014 Influenza Vaccine (FLU shot) Completed 08/2022, 03/10/2022, 01/23/2021, Additional history exists GARDASIL-HPV IMMUNIZATION SERIES Aged Out No longer eligible based on patient's age to complete this topic Hepatitis B Aged Out No longer eligi ble based on patient's age to complete this topic MENINGOCOCCAL (MENACTRA/MENVEO) Aged Out No longer eligible based on patient's age to complete this topic documented as of this encounter Medical Devices Not on filedocumented as of this encounter Visit Diagnoses Diagnosis Preop examination- Primary Preoperative examination, unspecified documented in this encounter Advance Directives Latest Code Status on File Code Status Date Activated Date Inactivated Comments Full Code 07/05/2018 5:26 PM 07/05/2018 11:02 PM This order reflects the patients wishes and were consensually agreed upon. Question Answer Comments Discussion of Advance Directives occurred with: Not Discussed Does the patient have a Living Will? No Does the patient have Health Care Power of Assistant Plant Control Operator? No Care Teams Spool Fixer Relationship Specialty Start Date End Date Elizabeth Sheffield PA-C [address] [phone] PCP - General Physician Roll Scale Worker 03/13/14 documented as of this encounter
--- OUTSIDE RECORDS SUMMARY | 2023-04-21 05:44 | External Medical Summary ---
Author Name Unknown Address Unknown Organization [id number]:[facility] [place] [address] [place] [address] Laboratory Report Ordering Provider Test Date Status LASHAY OSORIO 04/07/2023 15:12:14 Final Observation Date Value Abnormality Reference (Units ) Status BUN 04/07/2023 15:12:14 15 6-20 (mg/dL) Final Creatinine 04/07/2023 15:12:14 0.9 0.5-1.0 (mg/dL) Final Glomerular filtration rate/1.73 sq M.predicted [Volume Rate/Area] in Serum, Plasma or Blood by Creatinine-based formula (CKD-EPI) 04/07/2023 15:12:14 74 >=60 (mL/min) Final eGFR is calculated based on the CKD-EPI 2020 equation SODIUM 04/07/2023 15:12:14 135 135-146 (m mol/L) Final Potassium 04/07/2023 15:12:14 4.8 3.5-5.1 (m mol/L) Final Cl 04/07/2023 15:12:14 100 98-107 (mm ol/L) Final CO2 04/07/2023 15:12:14 27 22-32 (mmo l/L) Final Anion gap 04/07/2023 15:12:14 8 7-15 (mmol /L) Final Glucose 04/07/2023 15:12:14 87 70-120 (mg /dL) Final Calcium 04/07/2023 15:12:14 9.5 8.4-10.2 ( mg/dL) Final Performing Location [facility] [place] [address] [place] [address]
--- OUTSIDE RECORDS SUMMARY | 2023-04-21 05:44 | External Medical Summary | Summary of Care ---
Author Name Unknown Organization [facility] Address [address] [place] [address] Phone [phone] Care Team Providers Care Hoeing Row Boss Name Role Phone Elizabeth Sheffield PA-C Primary Care Provider Reason for Visit * Reason Comments Outpatient Testing Encounter Details Date Type Department Care Team (Late st Contact Info) Description 04/07/2023 3:20 PM EST Laboratory Laboratory, [place] [address] [facility] [address] [place] [id number] [place], [facility] [address] [place] [address] Hyperkalemia Allergies Active Allergy Reactions Criticality Noted Date [...] Date Smoking Tobacco: Never Smokeless Tobacco: Never Alcohol Use Standard Drinks/Week Comments Not Currently [...] on file documented as of this encounter Plan of Treatment Upcoming Encounters Date Type Department Care Team (Late st Contact Info) Description 06/15/2023 11:20 AM EST Office Visit [facility] [address] [place] [phone] Elizabeth Sheffield PA-C [address] [place] [phone] Pending Results Name Type Priority Associated Diagnoses Date /Time BASIC METABOLIC PANEL Lab Routine Hyperkalemia 04/07/2023 3:12 PM EST Scheduled Procedures Name Priority Associated Diagnoses Date/Ti [...] Screening 12/15/2023 12/14/2022 CKD HGB USE SMARTSET 14777 12/16/202312/15, 11/11/2021, 11/11/2021, Additional history exists CKD PHOS USE SMARTSET 79485 12/16/2023 09/0 09/2022, 08/19/2021, 02/20/2020, Additional history exists TSH 12/16/2023 [...] as of this encounter Visit Diagnoses Diagnosis Hyperkalemia Hyperpotassemia documented in this encounter Advance Directives Latest [...] the patient have Health Care Power of Home Insurance Agent? No Care Teams Hoeing Row Boss Relationship Specialty Start Date End Date Elizabeth Sheffield PA-C [address] [place] [phone] PCP - General Physician Dinkey Operator Slag 03/13/14 documented as of this encounter
--- OUTSIDE RECORDS SUMMARY | 2023-04-21 05:44 | External Medical Summary | Summary of Care ---
Author Name Unknown Organization [facility] Address [address] [place] [address] Phone [phone] Care Team Providers Care Full Stack Software Engineer Name Role Phone Karely Sheffield PA-C Primary Care Provider Reason for Visit * Reason Comments eRx-Medication Refill Encounter Details Date Type Department Care Team (Late st Contact Info) Description 04/11/2023 Refill [facility] [address] [place] [phone] Karely Sheffield PA-C [address] [place] [phone] Dyspepsia Allergies Active Allergy Reactions Criticality Noted Date Comments Adhesive Tape 08/30/2012 Blisters Bactrim Rash 07/04/2012 Thrush, vaginal yeast Amlodipine Nausea/vomiting,Othe r (Please comment) Medium 12/18/2014 Headaches. Only nausea/no vomiting. Sulfamethoxazole 07/05/2012 Other reaction(s): rash,yeast infection Trimethoprim 07/05/2012 Other reaction(s): rash,yeast infection documented as of this encounter (statuses as of 04/12/2023) Medications Medication Sig Dispensed Refills Start Date End Date Status FISH OIL 1200 MG PO CAPS one tab by mouth each day 0 Active FIBERCON 625 MG PO TABS 1 tab by mouth daily 0 Active Riboflavin 400 MG Oral Capsule Take 1 Capsule by mouth in the morning. 0 Active Magnesium 100 MG CapsuleIndications: TAKES 250 MG Take 1 Capsule by mouth in the morning. 0 Active Vitamin D3 50 MCG (2000 UT) Oral CapsuleIndications: Vitamin D deficiency Take 1 Cap by mouth daily. 30 Cap 5 08/20/2020 Active Biotin 5 MG Oral Tablet Take 1 Tablet by mouth in the morning. 0 Active Omeprazole 40 MG Oral Capsule Delayed Release (PriLOSEC)Indicatio ns:GERD (gastroesophageal reflux disease) TAKE 1 CAPSULE DAILY 90 Capsule 3 05/26/2022 Active Atorvastatin Calcium 40 MG Oral Tablet (Lipitor) Take 1 Tablet by mouth in the morning. 90 Tablet 3 06/14/2022 Active Losartan Potassium 25 MG Oral Tablet (Cozaar)Indications :Essential hypertension with goal blood pressure less than [...] 11/08/2022 Active LORazepam 0.5 MG Oral Tablet (Ativan)Indications :Generalized anxiety disorder Take 1 Tablet by mouth 3 times a day as needed for Anxiety. 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, lumbar region TAKE 1 TABLET IN THE MORNING WITH FOOD 90 Tablet 1 03/04/2023 Active Gabapentin 300 MG Oral Capsule (Neurontin) TAKE 1 CAPSULE THREE TIMES A DAY 270 Capsule 3 03/11/2023 Active Levothyroxine Sodium 50 MCG Oral Tablet (Levoxyl)Indication s:Acquired hypothyroidism TAKE 1 TABLET DAILY FIRST THING IN THE MORNING 90 Tablet 1 03/28/2023 Active Donepezil HCl 5 MG Oral Tablet (Aricept)Indication s:Dementia without behavioral disturbance (HCC) TAKE 1 TABLET DAILY WITH LARGEST MEAL OF THE DAY 90 Tablet 3 03/28/2023 Active Famotidine 20 MG Oral Tablet (Pepcid)Indications :Dyspepsia TAKE 1 TABLET EVERY MORNING 90 Tablet 3 04/12/2023 Active Famotidine 20 MG Oral Tablet (Pepcid)Indications :Dyspepsia Take 1 Tablet by mouth every morning. 90 Tablet 3 05/24/2022 4 Discontinued documented as of this encounter (statuses as of 04/12/2023) Active Problems Problem Noted Date Diagnosed Date [...] as of this encounter (statuses as of 04/12/2023) Resolved Problems Problem Noted Date Diagnosed Date Resolved Date Dementia without behavioral disturbance 02/07/2019 12/14/2022 Overview: ICD-10 update of inactive term Kidney disease, chronic, sta ge III (GFR 30-59 ml/min) 02/20/2018 08/20/2020 Overview: Per CKD protocol #1 Lumbago 02/21/2014 08/15/2019 documented as of this encounter (statuses as of 04/12/2023) Immunizations Name Administration Dates Next Due COVID-19 [...] on file documented as of this encounter Miscellaneous Notes * Telephone Encounter - Karely Kennedy [facility] - 04/12/2023 1:41 PM EST Signed Prescriptions: Disp Refills Famotidine 20 MG Oral Tablet (Pepcid) 90 Tab*3 Sig: TAKE 1 TABLET EVERY MORNINGAuthorizing Provider: KARELY SHEFFIELD User: KARELY KENNEDY------ documented in this encounter Plan of Treatment Upcoming Encounters Date Type Department Care Team (Late st Contact Info) Description 06/15/2023 11:20 AM EST Office Visit [facility] [address] [place] [phone] Karely Sheffield PA-C [address] [place] [phone] Scheduled Procedures Name Priority Associated Diagnoses Date/Ti me COLONOSCOPY FLEXIBLE PROXIMA L DIAGNOSTIC Recall Special screening for malignant neoplasms, colon Health Maintenance Due Date Last Done Comments Cologuard 1999 Fecal Occult Blood Test 1999 Sigmoidoscopy 1999 DTaP,Tdap,and Td Vaccines (3 - Td or Tdap) 10/06/2020 10/06/2010, 09/16/2010 Colonoscopy 07/05/2022 07/05/2012, 07/05/2012 Colorectal Cancer Screening 07/05/2022 COVID-19 Vaccine (5 - 2022- season) 2022 04/19/2022, 04/08/2021, 05/23/2020, Additional history exists Mammogram 08/18/2023 08/17/2022, 07/11, 06/18/2020, Additional history exists GFR 10/07/2023 04/07/2023, 0909/2022, 10/20/2022, Additional history exists Depression Screening 12/15/2023 12/14/2022 CKD HGB USE SMARTSET 16484 12/16/202312/15, 11/11/2021, 11/11/2021, Additional history exists CKD PHOS USE SMARTSET 57976 12/16/2023 090 09/2022, 08/19/2021, 02/20/2020, Additional history exists TSH 12/16/2023 12/15/2022, 02/09, 08/19/2021, Additional history exists Albumin/Creatinine Ratio 12/21/2023 12/20/2022, 02/11 DXA Scan 09/13/2024 09/14/2019 Diabetes Screening 04/07/2026 04/07/2023, 0 12/15/2022, 10/20/2022, Additional history exists Lipid Panel 12/16/2027 [...] as of this encounter Visit Diagnoses Diagnosis Dyspepsia Dyspepsia and other specified disorders of function of stomach documented in this encounter Advance Directives Latest [...] the patient have Health Care Power of Nursing Clinical Director? No Care Teams Full Stack Software Engineer Relationship Specialty Start Date End Date Karely Sheffield PA-C [address] [place] [phone] PCP - General Physician Icer Machine Operator 03/13/14 documented as of this encounter
--- OUTSIDE RECORDS SUMMARY | 2023-04-21 05:45 | External Medical Summary | Summary of Care ---
Author Name Unknown Organization [facility] Address [address] [place] [address] Phone [phone] Care Team Providers Care Cork Insulator Name Role Phone Karely Sheffield PA-C Primary Care Provider Reason for Visit * Reason Comments eRx-Medication Refill Encounter Details Date Type Department Care Team (Late st Contact Info) Description 03/28/2023 Refill [facility] [address] [place] [phone] Karely Sheffield PA-C [address] [place] [phone] Dementia without behavioral disturbance (HCC) Allergies Active Allergy Reactions Criticality Noted Date Comments Adhesive Tape 08/30/2012 Blisters Bactrim Rash 07/04/2012 Thrush, vaginal yeast Amlodipine Nausea/vomiting,Othe r (Please comment) Medium 12/18/2014 Headaches. Only nausea/no vomiting. Sulfamethoxazole 07/05/2012 Other reaction(s): rash,yeast infection Trimethoprim 07/05/2012 Other reaction(s): rash,yeast infection documented as of this encounter (statuses as of 03/28/2023) Medications Medication Sig Dispensed Refills Start Date [...] Vitamin D3 50 MCG (1999 UT) Oral CapsuleIndications: Vitamin D deficiency Take 1 Cap by mouth daily. 30 Cap 5 08/20/2020 Active Biotin 5 MG Oral Tablet Take 1 Tablet by mouth in the morning. 0 Active Famotidine 20 MG Oral Tablet (Pepcid)Indications [...] THE DAY 90 Tablet 3 03/28/2023 Active Donepezil HCl 5 MG Oral Tablet (Aricept)Indication s:Dementia without behavioral disturbance (HCC) TAKE 1 TABLET DAILY WITH LARGEST MEAL OF THE DAY 90 Tablet 3 04/19/2022 3 Discontinued documented as of this encounter (statuses as of 03/28/2023) Active Problems Problem Noted Date Diagnosed Date MEDICATION USE AGREEMENT 12/14/2022 Overview: Rarely takes [...] as of this encounter (statuses as of 03/28/2023) Resolved Problems Problem Noted Date Diagnosed Date Resolved Date Dementia without behavioral disturbance 02/07/2019 12/14/2022 Overview: ICD-10 update of inactive term Kidney disease, chronic, sta ge III (GFR 30-59 ml/min) 02/20/2018 08/20/2020 Overview: Per CKD protocol #1 Lumbago 02/21/2014 08/15/2019 documented as of this encounter (statuses as of 03/28/2023) Immunizations Name Administration Dates Next Due COVID-19 [...] the money to buy more. Never true 03/14/20 23 Within the past 12 months, t he food you bought just didn't last and you didn't have money to get more. Never true 03/14/2023 Sex and Gender Information Value Date Recorded Sex Assigned at Female 08/27/2021 12:31 PM EDT Gender Identity Female 08/27/2021 12:31 PM EDT Sexual Orientation Straight 08/27/2021 12 :31 PM EDT Job Start Date Occupation Industry Not on file Not on file Not on file documented as of this encounter Miscellaneous Notes * Telephone Encounter - Karely Sheffield PA-C - 03/28/2023 3:17 PM EST Signed Prescriptions: Disp Refills Donepezil HCl 5 MG Oral Tablet (Aricept) 90 Tab*3 Sig: TAKE 1 TABLET DAILY WITH LARGEST MEAL OF THE DAY Authorizing Provider: KARELY SHEFFIELD * Telephone Encounter - Reji Lambert RPh - 03/28/2023 3:15 PM ESTPending Prescriptions: Disp Refills Donepezil HCl 5 MG Oral Tablet [Pharmacy M*90 Tab*3 Sig: TAKE 1 TABLET DAILY WITH LARGEST MEAL OF THE DAY * Telephone Encounter - Reji Lambert RPh - 03/28/2023 3:15 PM EST Refill pharmacists currently not authorized to approve refills for this class of medication per refill protocol. Please approve if appropriate. Thanks, Reji Lambert, PharmD Clinical Pharmacist TelePharmacy 03/28/2023 3:15 PM documented in this encounter Plan of Treatment Upcoming Encounters Date Type Department Care Team (Late st Contact Info) Description 04/07/2023 10:20 AM EST Office Visit [facility] [place] [address] [place] [phone] Elliott Ruggiero CRNP [address] [place] [phone] 06/15/2023 11:20 AM EST Office Visit [facility] [place] [address] [place] [phone] Karely Sheffield PA-C [address] [place] [phone] Scheduled Procedures Name Priority Associated Diagnoses Date/Ti [...] Screening 12/15/2023 12/14/2022 CKD HGB USE SMARTSET 83739 12/16/202312/15, 11/11/2021, 11/11/2021, Additional history exists CKD PHOS USE SMARTSET 25614 12/16/2023 09/0 09/2022, 08/19/2021, 02/20/2020, Additional history [...] as of this encounter Visit Diagnoses Diagnosis Dementia without behavioral disturbance (HCC) Dementia, unspecified, without behavioral disturbance documented in this encounter Advance Directives Latest [...] the patient have Health Care Power of Morgue Attendant? No Care Teams Cork Insulator Relationship Specialty Start Date End Date Karely Sheffield PA-C [address] [place] [phone] PCP - General Physician Quality Control Director 03/13/14 documented as of this encounter
--- OUTSIDE RECORDS SUMMARY | 2023-04-21 05:45 | External Medical Summary | Summary of Care ---
Author Name Unknown Organization [facility] Address [address] [place] [address] Phone [phone] Care Team Providers Care Director Of Retail Merchandising Name Role Phone Elizabeth Sheffield PA-C Primary Care Provider Reason for Visit * Reason Onset Date Comments Outpatient Testing 03/08/2023 Encounter Details Date Type Department Care Team (Late st Contact Info) Description 03/08/[address] [facility] [address] [place] [phone] Elizabeth Sheffield PA-C [address] [place] [phone] Outpatient Testing Allergies Active Allergy Reactions Criticality Noted Date Comments Adhesive Tape 08/30/2012 Blisters Bactrim Rash 07/04/2012 Thrush, vaginal yeast Amlodipine Nausea/vomiting,Othe r (Please comment) Medium 12/18/2014 Headaches. Only nausea/no vomiting. Sulfamethoxazole 07/05/2012 Other reaction(s): rash,yeast infection Trimethoprim 07/05/2012 Other reaction(s): rash,yeast infection documented as of this encounter (statuses as of 03/08/2023) Medications Medication Sig Dispensed Refills Start Date [...] by mouth in the morning. 0 Active Gabapentin 300 MG Oral Capsule (Neurontin) TAKE 1 CAPSULE THREE TIMES A DAY 270 Capsule 3 04/19/2022 Active Donepezil HCl 5 MG Oral Tablet (Aricept)Indications:D ementia without behavioral disturbance (HCC) TAKE 1 TABLET DAILY WITH LARGEST MEAL OF THE DAY 90 Tablet 3 04/19/2022 Active Famotidine 20 MG Oral Tablet (Pepcid)Indications:Dy [...] the morning. 90 Tablet 3 08/05/2022 Active Levothyroxine Sodium 50 MCG Oral Tablet (Levoxyl)Indications:A cquired hypothyroidism Take 1 Tablet by mouth daily first thing in the morning. 90 Tablet 1 10/11/2022 Active SUMAtriptan Succinate 50 MG Oral Tablet [...] WITH FOOD 90 Tablet 1 03/04/2023 Active documented as of this encounter (statuses as of 03/08/2023) Active Problems Problem Noted Date Diagnosed Date [...] as of this encounter (statuses as of 03/08/2023) Resolved Problems Problem Noted Date Diagnosed Date Resolved Date Dementia without behavioral disturbance 02/07/2019 12/14/2022 Overview: ICD-10 update of inactive term Kidney disease, chronic, sta ge III (GFR 30-59 ml/min) 02/20/2018 08/20/2020 Overview: Per CKD protocol #1 Lumbago 02/21/2014 08/15/2019 documented as of this encounter (statuses as of 03/08/2023) Immunizations Name Administration Dates Next Due COVID-19 mRNA, LNP-s, No Pre serve, 2-Dose Series (Moderna) 05/23/2020,04/25/2020 COVID-19, mRNA, LNP-s, PF, B ooster, 100mcg/0.5mg (Moderna) 04/08/2021 Covid-19, Mrna, Lnp-s, Pf, B ivalent, 50 Mcg, IM, 12 yrs and above (Moderna) 04/19/2022 DTaP Dipth/Tet/Acell Pertussis (Infanrix), Peds 09/16/2010 Pneumococcal Conjugate Vacc, 13 Valent (Prevnar) 08/15/2019 Pneumococcal Polysaccharide PPV23 (Pneumovax) 08/20/2020 SEASONAL INFLUENZA, PF, 6 M & Above, IM , (FLULAVAL or FLUZONE) 02/07/2019,02/01/2018 Season Influenza, Quad, PF, Adjuvanted, 65+ Yrs, IM (FLUAD) 01/18/2020 Seasonal Influenza, Quadriva lent Hd (Fluzone Hd) [...] the money to buy more. Never true 03/08/20 22 Within the past 12 months, t he food you bought just didn't last and you didn't have money to get more. Never true 03/08/2022 Sex and Gender Information Value Date Recorded Sex Assigned at Female 08/27/2021 12:31 PM EDT Gender Identity Female 08/27/2021 12:31 PM EDT Sexual Orientation Straight 08/27/2021 12 :31 PM EDT Job Start Date Occupation Industry Not on file Not on file Not on file documented as of this encounter Miscellaneous Notes * Addendum Note - Devon Metz CRNP - 03/08/2023 5:23 PM ESTAddended by: DEVON METZ on: 03/08/2023 05:23 PM Modules accepted: Orders * Telephone Encounter - Devon Metz CRNP - 03/08/2023 5:23 PM EST Order placed for BMP. Can get the done a day before appointment. * Telephone Encounter - Timur Campbell LPN - 03/08/2023 3:42 PM EST Received a call from [facility] about pt. They stated that pts K is high. They stated that pt K is 5.2. They wanted to let us know since she has an appointment on 03/14. They weren't sure if we'd want to get labs before appointment or at appointment. documented in this encounter Plan of Treatment Upcoming Encounters Date Type Department Care Team (Late st Contact Info) Description 03/14/2023 10:00 AM EST Office Visit [facility] [address] [place] [phone] Devon Metz CRNP [address] [place] [phone] 06/15/2023 11:20 AM EST Office Visit [facility] [place] [address] [place] [address] Elizabeth Sheffield PA-C [address] [place] [phone] Scheduled Orders Name Type Priority Associated Diagnoses Orde r Schedule BASIC METABOLIC PANEL Lab Routine Hyperkalemia Expected: 03/08/2023 (Approximate), Expires: 03/07/2024 Scheduled Procedures Name Priority Associated Diagnoses Date/Ti [...] Screening 12/15/2023 12/14/2022 CKD HGB USE SMARTSET 45062 12/16/202312/15, 11/11/2021, 11/11/2021, Additional history exists CKD PHOS USE SMARTSET 89741 12/16/2023 0909/2022, 08/19/2021, 02/20/2020, Additional history exists TSH 12/16/2023 [...] as of this encounter Visit Diagnoses Diagnosis Hyperkalemia- Primary Hyperpotassemia documented in this encounter Advance Directives [...] the patient have Health Care Power of Geophysics Scientist? No Care Teams Director Of Retail Merchandising Relationship Specialty Start Date End Date Elizabeth Sheffield PA-C [address] [place] [phone] PCP - General Physician Inflatable Buildings Laminator 03/13/14 documented as of this encounter
--- OUTSIDE RECORDS SUMMARY | 2023-04-21 05:45 | External Medical Summary | Summary of Care ---
Author Name Unknown Organization [facility] Address [address] [place] [address] Phone [phone] Care Team Providers Care Material Mover Name Role Phone Elizabeth Sheffield PA-C Primary Care Provider Reason for Visit * Reason Onset Date Comments Outpatient Testing 03/08/2023 Encounter Details Date Type Department Care Team (Late st Contact Info) Description 03/08/2023 Telephone [facility] [address] [place] [phone] Elizabeth Sheffield PA-C [address] [place] [phone] Outpatient Testing Allergies Active [...] encounter Miscellaneous Notes * Telephone Encounter - Timur Campbell LPN - 03/08/2023 5:29 PM EST Pt notified and verbalized understanding. * Addendum Note - Devon Metz CRNP - 03/08/2023 5:23 PM ESTAddended by: DEVON METZ on: 03/08/2023 05:23 PM Modules accepted: Orders * Telephone Encounter - Devon Metz CRNP - 03/08/2023 5:23 PM EST Order placed for BMP. Can get the done a day before appointment. * Telephone Encounter - Timur Campbell LPN - 03/08/2023 3:42 PM EST Received a call from [facility] about pt. They stated that pts K [...] Description 03/14/2023 10:00 AM EST Office Visit [facility] [address] [place] [phone] Devon Metz CRNP [address] [place] [phone] 06/15/2023 11:20 AM EST Office Visit [facility] [address] [place] [phone] Elizabeth Sheffield PA-C [address] [place] [phone] Scheduled Orders Name Type Priority Associated Diagnoses [...] Screening 12/15/2023 12/14/2022 CKD HGB USE SMARTSET 58591 12/16/202312/15, 11/11/2021, 11/11/2021, Additional history exists CKD PHOS USE SMARTSET 40880 12/16/2023 0909/2022, 08/19/2021, 02/20/2020, Additional history exists [...] the patient have Health Care Power of Security Tech? No Care Teams Material Mover Relationship Specialty Start Date End Date Elizabeth Sheffield PA-C [address] [place] [phone] PCP - General Physician Lugger 03/13/14 documented as of this encounter
--- OUTSIDE RECORDS SUMMARY | 2023-04-21 05:45 | External Medical Summary | Summary of Care ---
Author Name Unknown Organization [facility] Address [address] [place] [address] Phone [phone] Care Team Providers Care Doll Wig Maker Rooted Hair Name Role Phone Karely Sheffield PA-C Primary Care Provider Reason for Visit * Reason Comments eRx-Medication Refill Encounter Details Date Type Department Care Team (Late st Contact Info) Description 03/10/[address] [place] [address] Karely Sheffield PA-C [address] [place] [phone] Allergies Active Allergy Reactions Criticality Noted Date Comments Adhesive Tape 08/30/2012 Blisters Bactrim Rash 07/04/2012 Thrush, vaginal yeast Amlodipine Nausea/vomiting,Othe r (Please comment) Medium 12/18/2014 Headaches. Only nausea/no vomiting. Sulfamethoxazole 07/05/2012 Other reaction(s): rash,yeast infection Trimethoprim 07/05/2012 Other reaction(s): rash,yeast infection documented as of this encounter (statuses as of 03/11/2023) Medications Medication Sig Dispensed Refills Start Date [...] by mouth in the morning. 0 Active Donepezil HCl 5 MG Oral Tablet (Aricept)Indication s:Dementia without behavioral disturbance (HCC) TAKE 1 TABLET DAILY WITH LARGEST MEAL OF THE DAY 90 Tablet 3 04/19/2022 Active Famotidine 20 MG Oral Tablet (Pepcid)Indications [...] 50 MCG Oral Tablet (Levoxyl)Indication s:Acquired hypothyroidism Take 1 Tablet by mouth daily [...] A DAY 270 Capsule 3 03/11/2023 Active Gabapentin 300 MG Oral Capsule (Neurontin) TAKE 1 CAPSULE THREE TIMES A DAY 270 Capsule 3 04/19/2022 3 Discontinued documented as of this encounter (statuses as of 03/11/2023) Active Problems Problem Noted Date Diagnosed Date [...] as of this encounter (statuses as of 03/11/2023) Resolved Problems Problem Noted Date Diagnosed Date Resolved Date Dementia without behavioral disturbance 02/07/2019 12/14/2022 Overview: ICD-10 update of inactive term Kidney disease, chronic, sta ge III (GFR 30-59 ml/min) 02/20/2018 08/20/2020 Overview: Per CKD protocol #1 Lumbago 02/21/2014 08/15/2019 documented as of this encounter (statuses as of 03/11/2023) Immunizations Name Administration Dates Next Due COVID-19 [...] Telephone Encounter - Karely Sheffield PA-C - 03/11/2023 11:31 AM EST Signed Prescriptions: Disp Refills Gabapentin 300 MG Oral Capsule (Neurontin) 270 Ca*3 Sig: TAKE 1 CAPSULE THREE TIMES A DAY Authorizing Provider: KARELY SHEFFIELD * Telephone Encounter - Andrew Montague LPN - 03/11/2023 10:24 AM ESTPending Prescriptions: Disp Refills Gabapentin 300 MG Oral Capsule [Pharmacy M*270 Ca*3 Sig: TAKE 1 CAPSULE THREE TIMES A DAY * Telephone Encounter - Andrew Montague LPN - 03/11/2023 10:23 AM EST Did you pend patient's preferred pharmacy and medication before forwarding?yes Pharmacy: [facility]- [place] Pending Prescriptions: Disp Refills Gabapentin 300 MG Oral Capsule (Neurontin*270 Ca*3 Sig: TAKE 1 CAPSULE THREE TIMES A DAY Last Visit: 02/05/2021 (in office), Visit date not found (telemedicine) Next Visit: Visit date not found If no future appointments scheduled, and last appointment is greater than a year ago, please schedule patient for a follow-up appointment Last date the medication was ordered: 04/19/22 Is this request for a controlled substance?No Urine Drug Screen: Results for orders placed or performed in visit on 03/10/22 PAIN MANAGEMENT DRUG PANEL, URINE W/ INTERPRETATION Result Value Compliance Interpretation Based on the medication information provided: The presence of lorazepam is CONSISTENT with lorazepam use. Amphetamine Negative Benzodiazepines Refer to confirmation results (A) Cannabinoids Negative Cocaine Metabolite Negative Fentanyl Negative Hydrocodone / Hydromorphone Negative Methadone Metabolite Negative Morphine / Codeine Negative Oxycodone / Oxymorphone Negative Valid Interpretation Normal Creatinine EMANI 27 Narrative Cutoff Concentrations: Drug Level Amphetamines 500 ng/mL Benzodiazepines 100 ng/mL Cannabinoids 50 ng/mL Cocaine Metabolite 150 ng/mL Fentanyl 1 ng/mL Hydrocodone / Hydromorphone 300 ng/mL Methadone Metabolite 100 ng/mL Morphine / Codeine 300 ng/mL Oxycodone / Oxymorphone 100 ng/mL Screening results are presumptive and can only be used for medical purposes. Confirmatory testing is available upon request. Patient Phone Numbers Labs: Lab Results Component Value Date/Time CREAT 1.0 12/15/2022 09:03 AM CREAT 0.9 02/20/2020 10:17 AM POTASSIUM 4.8 01/13/2023 02:51 PM POTASSIUM 4.7 02/20/2020 10:17 AM TSH 1.41 12/15/2022 09:03 AM TSH 1.29 02/20/2020 10:17 AM LDLCALC 173 (H) 12/15/2022 09:03 AM LDLCALC 102 02/20/2020 10:17 AM LDLDIRECT NOT APPLICABLE 02/20/2020 10:17 AM ALT 24 12/15/2022 09:03 AM ALT 24 02/20/2020 10:17 AM HGBA1C 5.7 (H) 10/20/2022 02:11 PM documented in this encounter Plan of Treatment Upcoming Encounters Date Type Department Care Team (Late st Contact Info) Description 03/14/2023 10:00 AM EST Office Visit [facility] [address] [place] [address] Elliott Ruggiero CRNP [address] [place] [phone] 06/15/2023 11:20 AM EST Office Visit [facility] [address] [place] [phone] Karely Sheffield PA-C [address] [place] [phone] Scheduled Procedures Name Priority Associated Diagnoses Date/Ti [...] Screening 12/15/2023 12/14/2022 CKD HGB USE SMARTSET 60705 12/16/202312/15, 11/11/2021, 11/11/2021, Additional history exists CKD PHOS USE SMARTSET 45816 12/16/2023 0909/2022, 08/19/2021, 02/20/2020, Additional history exists [...] Not on filedocumented as of this encounter Advance Directives Latest Code Status on File Code Status Date Activated Date Inactivated Comments Full Code 07/05/2018 5:26 PM 07/05/2018 11:02 PM This order reflects the patients wishes and were consensually agreed upon. Question Answer Comments Discussion of Advance Directives occurred with: Not Discussed Does the patient have a Living Will? No Does the patient have Health Care Power of Fleet Administrator? No Care Teams Doll Wig Maker Rooted Hair Relationship Specialty Start Date End Date Karely Sheffield PA-C [address] [phone] PCP - General Physician Predictive Maintenance Specialist 03/13/14 documented as of this encounter
--- OUTSIDE RECORDS SUMMARY | 2023-04-21 05:45 | External Medical Summary | Summary of Care ---
Author Name Unknown Organization [facility] Address [address] [place] [address] Phone [phone] Care Team Providers Care Internal Control Manager Name Role Phone Karely Sheffield PA-C Primary Care Provider Reason for Visit * Reason Comments eRx-Medication Refill Encounter Details Date Type Department Care Team (Late st Contact Info) Description 03/28/[address] [facility] [address] [place] [address] Alex Stratton Jr., DO [address] [place] [address] Acquired hypothyroidism Allergies Active Allergy Reactions Criticality Noted Date [...] THE MORNING 90 Tablet 1 03/28/2023 Active Levothyroxine Sodium 50 MCG Oral Tablet (Levoxyl)Indication s:Acquired hypothyroidism Take 1 Tablet by mouth daily first thing in the morning. 90 Tablet 1 10/11/2022 Discontinued documented as of this encounter (statuses [...] encounter Miscellaneous Notes * Telephone Encounter - Morgan Iyer [facility] - 03/28/2023 2:16 PM EST Signed Prescriptions: Disp Refills Levothyroxine Sodium 50 MCG Oral Tablet (L*90 Tab*1 Sig: TAKE 1TABLET DAILY FIRST THING IN THE MORNINGAuthorizing Provider: KARELY SHEFFIELD User: MORGAN IYER documented in this encounter Plan of Treatment Upcoming Encounters Date Type Department Care Team (Late st Contact Info) Description 04/07/2023 10:20 AM EST Office Visit [facility] [address] [place] [address] Elliott Ruggiero CRNP [address] [place] [address] 06/15/2023 11:20 AM EST Office Visit [facility] [address] [place] [address] Karely Sheffield PA-C [address] [place] [phone] Scheduled Procedures Name Priority Associated Diagnoses Date/Ti [...] Screening 12/15/2023 12/14/2022 CKD HGB USE SMARTSET 30663 12/16/202312/15, 11/11/2021, 11/11/2021, Additional history exists CKD PHOS USE SMARTSET 66663 12/16/2023 09/09/2022, 08/19/2021, 02/20/2020, Additional history exists [...] as of this encounter Visit Diagnoses Diagnosis Acquired hypothyroidism Unspecified hypothyroidism documented in this encounter Advance Directives Latest [...] the patient have Health Care Power of Cost Manager? No Care Teams Internal Control Manager Relationship Specialty Start Date End Date Karely Sheffield PA-C [address] [place] [phone] PCP - General Physician Certified Paralegal 03/13/14 documented as of this encounter
--- OUTSIDE RECORDS SUMMARY | 2023-04-21 05:45 | External Medical Summary | Summary of Care ---
Author Name Unknown Organization [facility] Address [address] [place] [address] Phone [phone] Care Team Providers Care Solar Engineer Name Role Phone Elizabeth Sheffield PA-C Primary Care Provider Reason for Visit * Reason Comments pre-op exam Pt is here for a pre -op exam 04/[address] Zavala for R knee replacement Encounter Details Date Type Department Care Team (Late st Contact Info) Description 03/14/2023 10:00 AM EST [facility] [address] [place] [address] Elliott Ruggiero CRNP [address] [place] [address] Patient left without being seen* Allergies Active Allergy Reactions Criticality Noted Date Comments Adhesive Tape 08/30/2012 Blisters Bactrim Rash 07/04/2012 Thrush, vaginal yeast Amlodipine Nausea/vomiting,Othe r (Please comment) Medium 12/18/2014 Headaches. Only nausea/no vomiting. Sulfamethoxazole 07/05/2012 Other reaction(s): rash,yeast infection Trimethoprim 07/05/2012 Other reaction(s): rash,yeast infection documented as of this encounter (statuses as of 03/17/2023) Medications Medication Sig Dispensed Refills Start Date [...] morning. 0 Active Vitamin D3 50 MCG (1999) Oral CapsuleIndications:Vit turk D deficiency Take 1 [...] A DAY 270 Capsule 3 03/11/2023 Active documented as of this encounter (statuses as of 03/17/2023) Active Problems Problem Noted Date Diagnosed Date [...] as of this encounter (statuses as of 03/17/2023) Resolved Problems Problem Noted Date Diagnosed Date Resolved Date Dementia without behavioral disturbance 02/07/2019 12/14/2022 Overview: ICD-10 update of inactive term Kidney disease, chronic, sta ge III (GFR 30-59 ml/min) 02/20/2018 08/20/2020 Overview: Per CKD protocol #1 Lumbago 02/21/2014 08/15/2019 documented as of this encounter (statuses as of 03/17/2023) Immunizations Name Administration Dates Next Due COVID-19 [...] Sign Reading Time Taken Comments Blood Pressure 128/76 03/14/2023 10:16 AM EST Pulse 58 03/14/2023 10:16 AM EST Temperature 36.3 C (97.3 F) 03/14/2023 1 0:16 AM EST Respiratory Rate 18 03/14/2023 10:1 6 AM EST Oxygen Saturation 99% 03/14/2023 10: 16 AM EST Inhaled Oxygen Concentration - - Weight 77.5 kg (170 lb 12.8 oz) 023 10:16 AM EST Height 152.4 cm (5') 03/14/2023 10:16 AM EST Body Mass Index 33.36 03/14/2023 10:16 AM EST documented in this encounter Progress Notes * Elliott Ruggiero CRNP - 03/17/2023 10:55 AM EST The patient left without being seen by the provider. Preop too early needed darian 03/17/2023, 10:55 AM, HILDA Pham documented in this encounter Nursing Notes * Timur Campbell LPN - 03/14/2023 10:18 AM EST Chief Complaint Patient presents with pre-op exam Pt is here for a pre-op exam 04/[address] Zavala for R knee replacement documented in this encounter Plan of Treatment Upcoming Encounters Date Type Department Care Team (Late st Contact Info) Description 04/07/2023 10:20 AM EST [facility] [address] [place] [address] Elliott Ruggiero CRNP [address] [place] [address] 06/15/2023 11:20 AM EST Office Visit [facility] [place] [place] [address] [place] [phone] Elizabeth Sheffield PA-C [address] [place] [phone] Scheduled Procedures Name Priority Associated Diagnoses Date/Ti [...] Screening 12/15/2023 12/14/2022 CKD HGB USE SMARTSET 74415 12/16/202312/15, 11/11/2021, 11/11/2021, Additional history exists CKD PHOS USE SMARTSET 32209 12/16/2023 0909/2022, 08/19/2021, 02/20/2020, Additional history exists [...] as of this encounter Visit Diagnoses Diagnosis Patient left without being seen- Primary Surgical or other procedure not carried out because of patient's decision documented in this encounter Advance Directives Latest [...] the patient have Health Care Power of Enrolled Nurse? No Care Teams Solar Engineer Relationship Specialty Start Date End Date Elizabeth Sheffield PA-C [address] [place] [phone] PCP - General Physician Mirror Inspector 03/13/14 documented as of this encounter
--- OUTSIDE RECORDS SUMMARY | 2023-04-21 05:46 | External Medical Summary | Summary of Care ---
Author Name Unknown Organization [facility] Address [address] [place] [address] Phone [phone] Care Team Providers Care Route Service Representative Name Role Phone Elizabeth Sheffield PA-C Primary Care Provider Encounter Details Date Type Department Care Team (Late st Contact Info) Description 03/08/[address] [facility] [address] [place] [address] Elizabeth Sheffield PA-C [address] [place] [address] Allergies Active Allergy Reactions [...] 3:42 PM EST Received a call from [facility] about pt. They stated that pts [...] 03/14/2023 10:00 AM EST Office Visit [facility] [address] [place] [phone] Elliott Ruggiero CRNP [address] [place] [phone] 06/15/2023 11:20 AM EST Office Visit [facility] [address] [place] [phone] Elizabeth Sheffield PA-C [address] [place] [phone] Scheduled Procedures Name Priority Associated Diagnoses Date/Ti [...] 02/24/2022, Additional history exists Mammogram 08/18/2023 08/17/2022, /2 10/2021, 06/18/2020, Additional history exists Depression Screening 12/15/2023 12/14/2022 CKD HGB USE SMARTSET 71041 12/16/202312/15, 11/11/2021, 11/11/2021, Additional history exists CKD PHOS USE SMARTSET 04883 12/16/2023 09/09/2022, 08/19/2021, 02/20/2020, Additional history exists [...] the patient have Health Care Power of Packing House Supervisor? No Care Teams Route Service Representative Relationship Specialty Start Date End Date Elizabeth Sheffield PA-C [address] [place] [phone] PCP - General Physician Regional Economist 03/13/14 documented as of this encounter
[2023-04-21] MEDS ORDERED: ROPIV 0.5% 246mg, Ketorolac 30mg, EPINEPHrine 0.5mg in NSS INFIL SCH (06:00)
[2023-04-21] MEDS ORDERED: ACETAMINOPHEN 500 MG TAB PO SCH (06:00)
[2023-04-21] MEDS ORDERED: TRANEXAMIC ACID 1,000 MG **IV Pre-op IV SCH (06:00)
[2023-04-21] MEDS ORDERED: METOCLOPRAMIDE HCL 10 MG TABLET PO SCH (06:00)
[2023-04-21] MEDS ORDERED: LR 500ML BOLUS, THEN 15ML/HR IV SCH (06:00)
[2023-04-21] MEDS ORDERED: GABAPENTIN 300 MG CAP PO SCH ×2 (06:00→21:00)
[2023-04-21] MEDS ORDERED: LR 60ML/HR IV SCH (06:00)
[2023-04-21] MEDS ORDERED: ceFAZolin 2000MG 2,000 MG/15 ML SYR IV SCH (06:00)
[2023-04-21] MEDS ORDERED: TRANEXAMIC ACID 1,000 MG **IV Intra-op IV SCH (06:00)
[2023-04-21] MEDS ORDERED: FAMOTIDINE 20 MG TAB PO SCH ×2 (06:00→21:00)
[2023-04-21] MEDS ORDERED: dexAMETHasone**PF** 10 MG/ML VIAL IV SCH (06:00)
[2023-04-21] MEDS ORDERED: ROPIVACAINE 0.5% 5 MG/ML 30 ML VIAL ONE (06:22)
[2023-04-21] MEDS ORDERED: BUPIVACAINE 0.5 % 5 MG/1 ML PF 10ML VIAL ONE (06:22)
[2023-04-21] MEDS ORDERED: ONDANSETRON INJ 2 MG/ML 2 ML VIAL IV PRN ×2 (06:36→11:01)
[2023-04-21] MEDS ORDERED: fentaNYL citrate PF 100 MCG/2 ML VIAL IV PRN (06:36)
[2023-04-21] MEDS ORDERED: ePHEDrine sulfate 50 MG/ML AMP IV PRN (06:36)
[2023-04-21] MEDS ORDERED: ATROPINE SULFATE 0.1 MG/ML 10ML SYR IV PRN (06:36)
[2023-04-21] MEDS ORDERED: ORTHO JOINT ANESTHETIC ONE (06:50)
--- NOTE | 2023-04-21 07:16 | History & Physical Bridge Note ---
Date of Service April 21, 2023 History & Physical Bridge Note I have examined the patient, reviewed the History & Physical and in the interval since the performance of the History & Physical I have noted the following changes of clinical significance: no changes noted
--- NOTE | 2023-04-21 09:28 | Post Operative Brief Note ---
Immediate Post Op Note v1 Date of Surgery April 21, 2023 Pre & Post Diagnosis Operation Date: 04/21/23 07:00 Pre-Op Diagnosis: Osteoarthritis Knee Right Post-Op Diagnosis: Osteoarthritis Knee Right I identified the patient and participated in the time-out.: Yes Procedure Operation Date: 04/21/23 07:00 Actual Procedures p Right Total Knee Arthroplasty(Right) - Maverick Zavala MD Surgeon Maverick Zavala MD Traffic Maintenance Supervisor Sriram DAVILA Estimated Blood Loss 5 Findings Consistent with Post-Op Diagnosis Drains Hemovac Drain (Duel 10fr drains with 400ml evacuator) Anesthesia Type MAC Spinal Regional Complications none Disposition Disposition: Recovery Room Overlapping Procedure I was immediately available: during the entire case.
--- NOTE | 2023-04-21 09:43 | Operative Report ---
Post Operative Report Pre & Post Diagnosis Operation Date: 04/21/23 07:00 Pre-Op Diagnosis: Osteoarthritis Knee Right Post-Op Diagnosis: Osteoarthritis Knee Right I identified the patient and participated in the time-out.: Yes Procedure Operation Date: 04/21/23 07:00 Actual Procedures p Right Total Knee Arthroplasty(Right) - Maverick Zavala MD Surgeon Maverick Zavala MD Parts Processor Sriram DAVILA Estimated Blood Loss 5 Findings Consistent with Post-Op Diagnosis Specimens Bone cuts Drains 2 Hemovac Anesthesia Type MAC Spinal Regional Complications none Disposition Disposition: Recovery Room Indications 59-year-old female with progressive osteoarthritis right knee failed conservative management. Radiographs demonstrate she has a varus knee with osteoarthritis patellofemoral and medial compartment [id number] medial compartment. Description of Procedure The patient was taken to the operating room and anesthetized under Spinal MAC regional block. Patient was placed supine on the the operating table. A pneumatic tourniquet was placed about the Right upper thigh. The knee exam demonstrated 0 through 120 degrees no pseudolaxity no instability moderately large effusion The involved leg was elevated exsanguinated with Esmarch bandage and the pneumatic tourniquet was raised to 300 millimeters mercury. A jean gitudinal incision was made across the anterior knee. Skin flaps were elevated. An incision was made into the medial retinaculum and extended up into the mid third of the quadriceps tendon and extended down to the tibial tubercle. Intra- articular findings demonstrated osteoarthritis medial compartment [id number] with a large radial tear of the medial meniscus with grade 3 osteoarthritis doe llofemoral joint The knee was exposed by excising cruciate ligaments and menisci. The infrapatellar fat pad was resected. The fat pad over the anterior femur at the upper aspect of the articular surface was resected for placement of the component in that area. A subperiosteal peel lateral release was performed around the patella. The [employer]hew journey 2.0 total knee arthroplasty system was utilized for the procedure. The custom femoral cutting guide was pinned in position. The distal femoral cut was made. The size 4, 5 in 1 cutting block was placed. The anterior posterior and chamfer cuts were made. The knee was extended and a free hand cut technique was performed to the patella. The patella width was measured and the width was reproduced using a 29 patella component. The excess lateral facet was beveled off to prevent any impingement. 3 drill holes are made for the patella component pegs. The tibia was then subluxed. The custom tibial cutting block was pinned in position and the proximal tibial cut was made with the oscillating saw. Flexion and extension gaps were balanced. no releases were required. The size 3 tibial trial was externally rotated in line with the tibial tubercle and pinned in position. The punch for the stem was used. The femoral trial was inserted and centered the notch cutting devices were used and the collet was placed. Tibial trials were used for the insert. The size 12 trial gave balanced ligaments through full range of motion. Patella tracking was assessed with range of motion. The patella tracked centrally.. The trials were removed. The Orthomix anesthetic cocktail was injected per protocol. The cut bone surfaces and soft tissue were copiously irrigated with pulsatile lavage saline solution. The final components were cemented with Refobacin cement. The final components were 4 right posterior stabilized [employer]hew journey 2.0 femoral component, 3 right tibial component, 12 mm tibial polyethylene posterior stabilized and 29 mm symmetrical polyethylene patella. Xperience irrigation was placed over metal tray prior to polyethyle insertion. After the cement cured, the knee was then copiously irrigated with pulsatile lavage Xperience solution. 2 drains were brought out laterally connected to Hemovac. The quadriceps tendon and medial retinaculum were closed with interrupted [id number] #1 Vicryl sutures. The knee was taken through full range of motion and repair was secure. Knee range of motion was 0 through 130 degrees. the subcutaneous tissues were closed with 2-0 Vicryl sutures. The skin was closed with [place] A standard dressing was applied. The tourniquet was let down and the patient had good capillary refill to the extremity. The patient tolerated the procedure well. My physician collections assistant Sriram DAVILA participated as cutting table operator first and was integral part in all aspects of the procedure including prepping, draping, leg positioning, soft tissue retraction, instrument management and assisted in the closure , dressing application and will participate in postoperative care the patient. I attest to the content of the Intraoperative Record and any orders documented therein. Any exceptions are noted below.
--- NOTE | 2023-04-21 10:43 | Anesthesiology Progress Note ---
Date of Service April 21, 2023 Anesthesia Post Procedure Vital Signs Vital Signs: Temp Pulse Resp BP Pulse Ox O2 Del Method O2 Flow Rate 04/21/23 10:30 65 13 139/66 99 Room Air 0 04/21/23 10:20 64 14 138/74 98 Room Air 0 04/21/23 10:10 71 14 148/57 H 100 Room Air 0 04/21/23 10:00 67 12 145/66 H 100 Oxymask 2 04/21/23 09:50 67 15 133/56 L 100 Oxymask 4 04/21/23 09:40 66 14 128/54 L 100 Oxymask 4 04/21/23 09:30 97.0 F L 75 14 117/65 100 Oxymask 6 04/21/23 05:33 97.5 F L 54 L 20 167/93 H 99 Room Air Transfer of Care Handoff Completed per policy Notes Mental Status: alert / awake / arousable and participated in evaluation Patient Amnestic to Procedure: Yes Nausea / Vomiting: adequately controlled Pain: adequately controlled Airway Patency, RR, SpO2: stable & adequate BP & HR: stable & adequate Hydration State: stable & adequate Neuraxial Anesthesia: was administered and sensory block is resolving Anesthetic Complications: no major complications apparent and Pt Satisfied with anesthetic care
[2023-04-21] MEDS ORDERED: HYDROmorphone INJ 0.5 MG/0.5 ML SYR IV PRN (11:01)
[2023-04-21] MEDS ORDERED: bisacodyL 10 MG SUPP PR PRN (11:01)
[2023-04-21] MEDS ORDERED: METOCLOPRAMIDE HCL INJ 5 MG/ML 2 ML VIAL IV PRN (11:01)
[2023-04-21] MEDS ORDERED: SODIUM CHLORIDE 0.9% 1,000 ML IV SCH (11:01)
[2023-04-21] MEDS ORDERED: MAGNESIUM HYDROXIDE SUSP 30 ML UDC PO PRN (11:01)
[2023-04-21] MEDS ORDERED: diphenhydrAMINE Capsule 25 MG CAP PO PRN (11:01)
[2023-04-21] MEDS ORDERED: NALOXONE HCL 0.4 MG/1 ML VIAL/CARP IV PRN (11:01)
[2023-04-21] MEDS ORDERED: LORazepam 0.5 MG TAB PO PRN (11:01)
--- NOTE | 2023-04-21 11:20 | Hospitalist Consultation ---
Date of Consultation April 21, 2023 Assessment & Plan (1) S/P total knee arthroplasty: (2) Hypertension: (3) Hyperlipidemia: (4) Hypothyroidism: Plan This is a 67yo F with a PMH of HTN, HLD, hypothyroidism, CKD 3, dementia without behavioral disturbance, history of migraines, TRIPP and other medical problems listed below who is POD#0 s/p R TKA by Dr. Zavala. S/p R TKA POD#0 s/p R TKA by Dr. Zavala Per ortho for pain control, wound care, anticoagulation and activities Monitor H&H (pre-op hgb 14.2), continue incentive spirometry, PT/OT when appropriate HTN Chronic, stable. Continue home losartan, Toprol HLD Chronic, stable. Continue home atorvastatin HS Hypothyroidism Chronic, stable. Continue levothyroxine Dementia Currently A&Ox3. Continue Aricept HS DVT Ppx: aspirin 81mg BID per primary service Code status: FULL PCP: SENA Sheffield Dispo: Per primary service Patient seen in collaboration with Dr. Lezama. Please see addendum. Thank you for this consultation. We will follow the patient with you during their hospital stay. You can reach a member of the [place] Hospitalist Team 01/11 via [employer]. Supervising Physician Co-Signing Physician Notes Patient seen and examined independently. Discussed with above provider. She is sitting up on the bed; not in any distress. She is eating lunch. She denies fever, chills, chest pain, shortness of breath, abdominal pain or urinary symptoms. On physical examination; Constitutional: Alert oriented x 3; not in distress. Respiratory: normal respiratory effort, lungs clear to auscultation, no wheeze, rales, rhonchi. Normal insp/exp effort, no accessory muscle use Cardiovascular: RRR, no murmur, no edema Vessels: no JVD or carotid bruit Chest: normal inspection of chest Abdomen: normal bowel sounds, soft, nontender, no hepatosplenomegaly Musculoskeletal: no cyanosis or clubbing, extremities motor strength 5/5. Right knee with bandage; drain with serosanguineous output. Skin: no rashes, warm and dry normal turgor Neurologic: PERRL, EOMI, accommodation nl, no face palsy, no dysarthria CN's II- XI intact bilaterally and moves all extremities Psychiatric: A+Ox3, euthymic affect Assessment/plan POD 0 TKA; PT OT evaluation Pain control Incentive spirometry Bowel regimen. Continue home meds Please note the above document was generated using voice recognition software. It may contain grammatical, syntax or spelling errors. Any formal questions or concerns about the content, text or information contained within the body of this dictation should be directly addressed to the provider for clarification History of Present Illness Reason for Consultation: post op med mgmt Attending Physician: Maverick Zavala MD History of Present Illness This is a 67yo F with a PMH of HTN, HLD, hypothyroidism, CKD 3, dementia without behavioral disturbance, history of migraines, TRIPP and other medical problems listed below who is POD#0 s/p R TKA by Dr. Zavala. Feeling comfortable and without pain with anesthetic effect still in place. History of worsening knee pain since September worsened with meniscus tear, prompting replacement today. Tolerating diet without issue. No F/C, lightheadedness, CP, SOB, N/V, abdominal pain, dysuria, diarrhea or constipation. Follows with SENA Sheffield for primary care. Allergies Allergy/AdvReac Type Severity Reaction Status Date / Time Sulfa (Sulfonamide Allergy systemic Verified 04/21/23 05:38 Antibiotics) yeast infection, rash Home Medications Medication Instructions Recorded Confirmed Type atorvastatin 40 mg tablet 40 mg PO HS 03/01/23 04/21/23 History biotin 5,000 mcg disintegrating 5,000 mcg PO QAM 03/01/23 04/21/23 History tablet calcium polycarbophil 625 mg 625 mg PO QAM 03/01/23 04/21/23 History tablet (FiberCon) cholecalciferol (vitamin D3) 50 50 mcg PO QAM 03/01/23 04/21/23 History mcg (2,000 unit) capsule (Vitamin D3) diphenhydramine HCl 25 mg capsule 25 mg PO HS PRN allergies 03/01/23 04/21/23 History (Benadryl) donepezil 5 mg tablet (Aricept) 5 mg PO HS 03/01/23 04/21/23 History famotidine 20 mg tablet 20 mg PO HS 03/01/23 04/21/23 History gabapentin 300 mg tablet,extended 300 mg PO HS 03/01/23 04/21/23 History release 24 hr levothyroxine 50 mcg tablet 50 mcg PO QAM 03/01/23 04/21/23 History lorazepam 0.5 mg tablet (Ativan) 0.5 mg PO HS PRN sleep/anxiety 03/01/23 04/21/23 History losartan 25 mg tablet 25 mg PO HS 03/01/23 04/21/23 History magnesium 200 mg tablet 400 mg PO QAM 03/01/23 04/21/23 History meloxicam 15 mg tablet 15 mg PO HS 03/01/23 04/21/23 History metoprolol succinate 25 mg 25 mg PO HS 03/01/23 04/21/23 History tablet,extended release 24 hr omega [id number] oil 1,200 mg 1 cap PO QAM 03/01/23 04/21/23 History (144 mg-216 mg) capsule (Fish Oil) omeprazole 40 mg capsule,delayed 40 mg PO QAM 03/01/23 04/21/23 History release riboflavin (vitamin B2) 100 mg 400 mg PO QAM 03/01/23 04/21/23 History tablet (Vitamin B-2) sumatriptan succinate 50 mg tablet 50 mg PO UD 04/21/23 04/21/23 History Patient History Medical History (Updated 04/21/23 @ 11:57 by Debbi Ortiz PA-C) Seasonal allergies Stable currently Snoring no witnessed apnea no hx of sleep study GERD (gastroesophageal reflux disease) well controlled and stable Hypothyroidism Arthritis Hyperlipidemia Hypertension Migraines Surgical History (Updated 04/21/23 @ 11:57 by Debbi Ortiz PA-C) History of dilatation and curettage Hx of hammer toe correction History of bilateral tubal ligation Hx of section x2 History of esophagogastroduodenoscopy (EGD) Hx of colonoscopy Hx of oral surgery H/O wisdom tooth extraction x1 Family History (Updated 04/21/23 @ 12:41 by Debbi Ortiz PA-C) Other Heart disease Hypertension Social History Smoking Status: Never smoker Second Hand Exposure: Yes (hx growing up and thru 20's and 30's); Do You Dip or Chew Tobacco: No; Tobacco Cessation Education Requested by Patient: No Hx Alcohol Use: No Hx Substance Use: No Preferred Language: German Communication Ability: Effective [employer] Required: No Beliefs That Will Affect Care: None Current Living Situation: Spouse Other Information That Helps Us Care for You: No Feels Safe at Home: Yes Safety Concerns: Feels Safe At This Time Assistive Devices: Glasses Review of Systems Review of Systems: At least ten systems reviewed and negative except as noted in the HPI. Physical Exam Physical Exam: Please see Dr. Lezama's addendum for physical exam. Results & Data Results & Data Vital Signs (Past 12 Hours) Vital Signs Temp Pulse Resp BP BP Pulse Ox O2 Del Method 04/21/23 11:03 36.5 C 73 17 145/79 H 95 Room Air 04/21/23 10:40 36.4 C L 69 16 146/66 H 98 Room Air 04/21/23 10:30 65 13 139/66 99 Room Air 04/21/23 10:20 64 14 138/74 98 Room Air 04/21/23 10:10 71 14 148/57 H 100 Room Air 04/21/23 10:00 67 12 145/66 H 100 Oxymask 04/21/23 09:50 67 15 133/56 L 100 Oxymask 04/21/23 09:40 66 14 128/54 L 100 Oxymask 04/21/23 09:30 36.1 C L 75 14 117/65 100 Oxymask 04/21/23 05:33 36.4 C L 54 L 20 167/93 H 99 Room Air O2 Flow Rate 04/21/23 11:03 04/21/23 10:40 0 04/21/23 10:30 0 04/21/23 10:20 0 04/21/23 10:10 0 04/21/23 10:00 2 04/21/23 09:50 4 04/21/23 09:40 4 04/21/23 09:30 6 04/21/23 05:33 Diagnostic Findings Knee X-Ray 04/21/23 09:38 XR knee RT 1 or 2V routine CLINICAL HISTORY: Postoperative evaluation. COMPARISON: None FINDINGS: Alignment of the total right knee arthroplasty is anatomic. No periprosthetic fracture or unexpected radiopaque foreign bodies are present. Drains and skin sanjana are present. IMPRESSION: Expected findings following total right knee arthroplasty. ACT 112: Negative or not required by law. Electronically signed by: Endy Mason M.D. 04/21/2023 11:51 AM
--- NOTE | 2023-04-21 11:53 | XRay Report ---
XR knee RT 1 or 2V routine CLINICAL HISTORY: Postoperative evaluation. COMPARISON: None FINDINGS: Alignment of the total right knee arthroplasty is anatomic. No periprosthetic fracture or unexpected radiopaque foreign bodies are present. Drains and skin sanjana are present. IMPRESSION: Expected findings following total right knee arthroplasty. ACT 112: Negative or not required by law. Electronically signed by: Endy Mason M.D. 04/21/2023 11:51 AM
[2023-04-21] MEDS ORDERED: SUMAtriptan succinate 50 MG TAB PO PRN (12:45)
[2023-04-21] MEDS: ACETAMINOPHEN 500 MG TAB PO SCH ×2 (13:03→22:54)
[2023-04-21] MEDS: ceFAZolin 1000MG 1,000 MG/7.5 ML SYR IV SCH ×2 (16:10→22:59)
[2023-04-21] MEDS ORDERED: ARTIFICIAL TEARS OP OINT 3.5 GM TUBE OP PRN (16:39)
[2023-04-21] MEDS ORDERED: hydrALAZINE HCL 20 MG/ML VIAL IV PRN (18:09)
[2023-04-21] MEDS: ASPIRIN 81 MG ECTAB PO SCH (20:26)
[2023-04-21] MEDS: DOCUSATE SODIUM 100 MG CAP PO SCH (20:28)
[2023-04-21] MEDS ORDERED: DONEPEZIL HCL 5 MG TAB PO SCH (21:00)
[2023-04-21] MEDS ORDERED: LOSARTAN POTASSIUM 25 MG TAB PO SCH (21:00)
[2023-04-21] MEDS ORDERED: SENNA 8.6 MG TAB PO SCH (21:00)
[2023-04-21] MEDS ORDERED: ATORVASTATIN 40 MG TAB PO SCH (21:00)
[2023-04-21] MEDS ORDERED: METOPROLOL SUCC 25MG EXT REL TAB PO SCH (21:00)
[2023-04-21] MEDS: oxyCODONE HCL IR 5 MG TAB (IMMEDIATE RELEASE) PO PRN (22:55)
[2023-04-22 05:46] LABS: Hematocrit (blood only) 34.3 % (37.0-47.0); Mean Corpuscular Hemoglobin 30.2 pg (25.0-34.0); Mean Corpuscular Volume 86.4 fL (80.0-100.0); Mean Platelet Volume 9.8 fL (9.4-12.4); Platelet Count 211 K/uL (130-400); RDW Standard Deviation 38.2 fL (36.4-46.3); Red Blood Count 3.97 M/uL (4.20-5.40); White Blood Count 14.89 K/ul (4.8-10.8)
[2023-04-22] MEDS: ACETAMINOPHEN 500 MG TAB PO SCH (05:52)
[2023-04-22 06:03] LABS: Calcium 8.8 mg/dl (8.6-10.3); Potassium 4.5 mmol/L (3.5-5.1)
[2023-04-22 06:09] LABS: BUN Creatinine Ratio 19.5 (10-20); Creatinine Clr Calc Pharmacy 57.2 ml/min; Est GFR (African American) 79.3 ml/min; Est GFR (Non-African American) 68.5 ml/min
[2023-04-22] MEDS ORDERED: LEVOTHYROXINE SODIUM 50 MCG TABLET PO SCH (06:30)
[2023-04-22] MEDS: DOCUSATE SODIUM 100 MG CAP PO SCH (08:08)
[2023-04-22] MEDS: ASPIRIN 81 MG ECTAB PO SCH (08:09)
--- NOTE | 2023-04-22 08:27 | Orthopedic Progress Note ---
Date of Service April 22, 2023 Assessment & Plan (1) S/P total knee arthroplasty: Plan: POD#1 right TKA -PT/OT -Pain management as written -DVT prophylaxis-SCDs, TEDs, ASA 81mg BID -AM labs-hemoglobin at 12 this am. Leukocytosis likely reactive due to surgical stress vs perioperative steroids. Mild hyponatremia, Na at 131. Patient is asymptomatic. She states she runs low. -D/c planning-home with HH when stable. Plan on d/c today if progresses well with PT and okay with medicine team. Admission and Anticipated Discharge Date Admission Date: April 21, 2023 Subjective Patient feeling well overall this morning. Did have migraine headache with hypertension yesterday, improved now. No other complaints. Denies chest pain, sob, dizziness, BATEMAN, n/v/d. Review of Systems Review of Systems: All systems reviewed & are unremarkable except as noted in Subjective Physical Exam Physical Exam: Right knee dressing is intact, bloody drainage from drain site, hemovac pulled out. This was removed. Incision is well approximated with no drainage, no erythema. New dressing was applied. No calf tenderness. Toes mobile with good DF, able to do SLR. Distally n/v status and sensation grossly intact. Results & Data Vital Signs (Past 12 Hours) Vital Signs Temp Pulse Resp BP BP Pulse Ox O2 Del Method 04/22/23 03:27 36.6 C 71 18 187/86 H 99 Room Air 04/21/23 23:01 36.5 C 61 16 187/98 H 99 Room Air 04/21/23 20:38 36.5 C 67 18 162/85 H 100 Room Air Laboratory Results Lab Results 04/22/23 Range/Units 05:32 WBC 14.89 H (4.8-10.8) K/ul RBC 3.97 L (4.20-5.40) M/uL Hgb 12.0 (12.0-16.0) g/dl Hct 34.3 L (37.0-47.0) % MCV 86.4 (80.0-100.0) fL MCH 30.2 (25.0-34.0) pg MCHC 35.0 (32.0-36.0) g/dL RDW Std Deviation 38.2 (36.4-46.3) fL RDW Coeff of Ashley 12.0 (11.5-14.5) % Plt Count 211 (130-400) K/uL MPV 9.8 (9.4-12.4) fL Sodium 131 L (136-145) mmol/L Potassium 4.5 (3.5-5.1) mmol/L Chloride 100 (98-107) mmol/L Carbon Dioxide 25 (21-32) mmol/L Anion Gap 6 (3-11) BUN 17 (6-23) mg/dl Creatinine 0.87 (0.6-1.2) mg/dl Est Cr Clr Drug Dosing 57.2 ml/min Est GFR ( Amer) 79.3 ml/min Est GFR (Non-Af Amer) 68.5 ml/min BUN/Creatinine Ratio 19.5 (10-20) Glucose 130 H (70-99(Fasting)) mg/dl Calcium 8.8 (8.6-10.3) mg/dl (1) S/P total knee arthroplasty Laterality: right Qualified Code(s): Z96.651 - Presence of right artificial knee joint
[2023-04-22] MEDS ORDERED: MULTIVITAMIN TAB PO SCH (09:00)
[2023-04-22] MEDS ORDERED: MAGNESIUM OXIDE 400 MG TAB PO SCH (09:00)
[2023-04-22] MEDS ORDERED: NON-FORMULARY MEDICATION (Biotin 5,000 mcg Tablet,Disintegrating) PO SCH (09:00)
[2023-04-22] MEDS ORDERED: CHOLECALCIFEROL 1,000 UNITS 25 MCG TAB PO SCH (09:00)
[2023-04-22] MEDS ORDERED: CYANOCOBALAMIN (B-12) 100 MCG TABLET PO SCH (09:00)
[2023-04-22] MEDS ORDERED: PANTOprazole 40 MG TAB PO SCH (09:00)
[2023-04-22 09:21] LABS: Magnesium 1.9 mg/dl (1.7-2.4)
[2023-04-22 09:26] LABS: Phosphorus 3.8 mg/dl (2.5-4.9)
--- NOTE | 2023-04-22 10:54 | Hospitalist Progress Note ---
Date of Service April 22, 2023 Assessment & Plan (1) S/P total knee arthroplasty: (2) Hypertension: (3) Hyperlipidemia: (4) Hypothyroidism: Plan This is a 67yo F with a PMH of HTN, HLD, hypothyroidism, CKD 3, dementia without behavioral disturbance, history of migraines, TRIPP and other medical problems listed below who is POD#0 s/p R TKA by Dr. Zavala. S/p R TKA POD#1 s/p R TKA by Dr. Zavala Per ortho for pain control, wound care, anticoagulation and activities Monitor H&H (pre-op hgb 14.2), decreased to Hgb 12 - mild anemia, post-op / acute blood loss- expected, no need for blood transfusion - continue incentive spirometry, PT/OT when appropriate Hyponatremia Na this AM 131 Patient reports that she has a history of hyponatremia. She feels well, denies any symptoms. Discussed with patient and case management, recommend to repeat BMP next week either by home nursing or by patient's PCP. Patient is in agreement. HTN Continue home losartan, Toprol HLD Continue home atorvastatin HS Hypothyroidism Chronic, stable. Continue levothyroxine Dementia Currently A&Ox3. Continue Aricept HS DVT Ppx: aspirin 81mg BID per primary service Code status: FULL PCP: SENA Sheffield Dispo: Per primary service Thank you for this consultation. We will follow the patient with you during their hospital stay. You can reach a member of the [facility] Hospitalist Team 01/11 via [employer]. Admission and Anticipated Discharge Date Admission Date: April 21, 2023 Subjective Pt seen in follow up of med. consult s/p TKA Hyponatremia Na 131 this AM Hgb 12 Patient is sitting up in bed, in no acute distress. She is already dressed, says that she feels well and is hopeful to go home. Denies any fever chills chest pain shortness of breath. Denies abdominal pain nausea vomiting. She does not feel dizzy or lightheaded. Says that her sodium level is often on the lower side. Discussed with the patient and case maker that she should have her sodium level rechecked either by home nursing, or by her PCP. Patient is in agreement. Review of Systems Review of Systems: All systems reviewed & are unremarkable except as noted in Subjective Physical Exam Physical Exam: Constitutional: Alert oriented x 3; not in distress. Respiratory: normal respiratory effort, lungs clear to auscultation, no wheeze, rales, rhonchi. Normal insp/exp effort, no accessory muscle use Cardiovascular: RRR, no murmur, no edema Vessels: no JVD or carotid bruit Chest: normal inspection of chest Abdomen: normal bowel sounds, soft, nontender Musculoskeletal: Right knee with dressings applied Skin: no rashes, warm Neurologic: PERRL, EOMI, no face palsy, no dysarthria, intact bilaterally and moves all extremities Psychiatric: A+Ox3, euthymic affect Results & Data Results & Data Vital Signs (Past 12 Hours) Vital Signs Temp Pulse Resp BP BP Pulse Ox O2 Del Method 04/22/23 08:31 36.8 C 69 16 146/71 H 98 Room Air 04/22/23 03:27 36.6 C 71 18 187/86 H 99 Room Air 04/21/23 23:01 36.5 C 61 16 187/98 H 99 Room Air Laboratory Results 04/22/23 Range/Units 05:32 WBC 14.89 H (4.8-10.8) K/ul RBC 3.97 L (4.20-5.40) M/uL Hgb 12.0 (12.0-16.0) g/dl Hct 34.3 L (37.0-47.0) % MCV 86.4 (80.0-100.0) fL MCH 30.2 (25.0-34.0) pg MCHC 35.0 (32.0-36.0) g/dL RDW Std Deviation 38.2 (36.4-46.3) fL RDW Coeff of Ashley 12.0 (11.5-14.5) % Plt Count 211 (130-400) K/uL MPV 9.8 (9.4-12.4) fL Sodium 131 L (136-145) mmol/L Potassium 4.5 (3.5-5.1) mmol/L Chloride 100 (98-107) mmol/L Carbon Dioxide 25 (21-32) mmol/L Anion Gap 6 (3-11) BUN 17 (6-23) mg/dl Creatinine 0.87 (0.6-1.2) mg/dl Est Cr Clr Drug Dosing 57.2 ml/min Est GFR ( Amer) 79.3 ml/min Est GFR (Non-Af Amer) 68.5 ml/min BUN/Creatinine Ratio 19.5 (10-20) Glucose 130 H (70-99(Fasting)) mg/dl Calcium 8.8 (8.6-10.3) mg/dl Phosphorus 3.8 (2.5-4.9) mg/dl Magnesium 1.9 (1.7-2.4) mg/dl Medications Administered Current Inpatient Medications Acetaminophen (Acetaminophen 500 Mg Tab) 1,000 mg PO Q8 JOHN Stop: 05/21/23 13:59 Last Admin: 04/22/23 05:52 Dose: 1,000 mg Aspirin (Aspirin 81 Mg Ectab) 81 mg PO BID JOHN Stop: 05/21/23 20:59 Last Admin: 04/22/23 08:09 Dose: 81 mg Atorvastatin Calcium (Atorvastatin 40 Mg Tab) 40 mg PO HS JOHN Stop: 05/21/23 20:59 Last Admin: 04/21/23 20:27 Dose: 40 mg Bisacodyl (Bisacodyl 10 Mg Supp) 10 mg [place] DAILY PRN PRN Reason: Constipation Stop: 05/21/23 11:00 Cyanocobalamin (Cyanocobalamin (B-12) 100 Mcg Tablet) 400 mcg PO QAM JOHN Stop: 05/22/23 08:59 Last Admin: 04/22/23 08:08 Dose: Not Given Diphenhydramine HCl (Diphenhydramine Capsule 25 Mg Cap) 25 mg PO HS PRN PRN Reason: allergies Stop: 05/21/23 11:00 Docusate Sodium (Docusate Sodium 100 Mg Cap) 100 mg PO BID JOHN Stop: 05/21/23 20:59 Last Admin: 04/22/23 08:08 Dose: 100 mg Donepezil HCl (Donepezil Hcl 5 Mg Tab) 5 mg PO HS JOHN Stop: 05/21/23 20:59 Last Admin: 04/21/23 20:28 Dose: 5 mg Famotidine (Famotidine 20 Mg Tab) 20 mg PO HS JOHN Stop: 05/21/23 20:59 Last Admin: 04/21/23 20:30 Dose: 20 mg Gabapentin (Gabapentin 300 Mg Cap) 300 mg PO HS JOHN Stop: 05/21/23 20:59 Last Admin: 04/21/23 20:29 Dose: 300 mg Hydralazine HCl (Hydralazine Hcl 20 Mg/Ml Vial) 5 mg IV Q8H PRN PRN Reason: Hypertension Stop: 05/21/23 18:08 Last Admin: 04/21/23 22:59 Dose: 5 mg Hydromorphone HCl (Hydromorphone Inj 0.5 Mg/0.5 Ml Syr) 0.5 mg IV Q4H PRN PRN Reason: Pain or Pre PT Stop: 05/05/23 11:00 Levothyroxine Sodium (Levothyroxine Sodium 50 Mcg Tablet) [facility]: 05/22/23 06:29 Last Admin: 04/22/23 05:52 Dose: 50 mcg Lorazepam (Lorazepam 0.5 Mg Tab) 0.5 mg PO HS PRN PRN Reason: sleep/anxiety Stop: 05/21/23 11:00 Losartan Potassium (Losartan Potassium 25 Mg Tab) 25 mg PO [facility] Stop: 05/21/23 20:59 Last Admin: 04/21/23 18:43 Dose: 25 mg Magnesium Hydroxide (Magnesium Hydroxide Susp 30 Ml Udc) 30 ml PO Q6H PRN PRN Reason: Constipation Stop: 05/21/23 11:00 Magnesium Oxide (Magnesium Oxide 400 Mg Tab) 400 mg PO [facility] Stop: 05/22/23 08:59 Last Admin: 04/22/23 08:09 Dose: 400 mg Metoclopramide HCl (Metoclopramide Hcl Inj 5 Mg/Ml 2 Ml Vial) 10 mg IV Q6H PRN PRN Reason: Nausea And Vomiting Stop: 05/21/23 11:00 Metoprolol Succinate (Metoprolol Succ 25mg Ext Rel Tab) 25 mg PO [facility] Stop: 05/21/23 20:59 Last Admin: 04/21/23 18:03 Dose: 25 mg Multi-Ingredient Cream (Artificial Tears Op Oint 3.5 Gm Tube) 1 appln OP BID PRN PRN Reason: eye pain Stop: 05/21/23 16:38 Multivitamins (Multivitamin Tab) 1 tab PO [facility] Stop: 05/22/23 08:59 Last Admin: 04/22/23 08:09 Dose: Not Given Naloxone HCl (Naloxone Hcl 0.4 Mg/1 Ml Vial/Carp) 0.1 mg IV Q5M PRN PRN Reason: Oversedation/Resp Depression Stop: 05/21/23 11:00 Ondansetron HCl (Ondansetron Inj 2 Mg/Ml 2 Ml Vial) 4 mg IV Q6H PRN PRN Reason: Nausea And Vomiting Stop: 05/21/23 11:00 Oxycodone HCl (Oxycodone Hcl Ir 5 Mg Tab (Immediate Release)) 5 - 10 mg PO Q4H PRN PRN Reason: Pain or Pre PT Stop: 05/05/23 11:00 Last Admin: 04/21/23 22:55 Dose: 10 mg Pantoprazole Sodium (Pantoprazole 40 Mg Tab) [facility] [place] Stop: 05/22/23 08:59 Last Admin: 04/22/23 08:08 Dose: 40 mg Sennosides (Senna 8.6 Mg Tab) 17.2 mg PO [facility] Stop: 05/21/23 20:59 Last Admin: 04/21/23 20:30 Dose: 17.2 mg Sumatriptan Succinate (Sumatriptan Succinate 50 Mg Tab) 50 mg PO Q2H PRN PRN Reason: migraine Last Admin: 04/21/23 18:35 Dose: 50 mg Vitamin D (Cholecalciferol 1,000 Units 25 Mcg Tab) 2,[facility] [place] Stop: 05/22/23 08:59 Last Admin: 04/22/23 08:08 Dose: 2,000 units (1) S/P total knee arthroplasty Laterality: right Qualified Code(s): Z96.651 - Presence of right artificial knee joint
[2023-04-22] MEDS: oxyCODONE HCL IR 5 MG TAB (IMMEDIATE RELEASE) PO PRN (11:59)
--- NOTE | 2023-04-22 13:05 | Discharge Summary ---
Date of Service April 22, 2023 Admission HPI Per Admitting Provider 67yo female with PMHx significant for hypothyroid, HTN, high cholesterol, migraines who presents with ongoing right knee pain. Pain is interfering with her daily activity. She has failed conservative measures. She would like to proceed with surgical management. Patient denies headaches, sweats, fevers, chills, double vision, blurred vision, cough, sore throat, dysphagia, chest pain, sob, wheezing, n/v/d/c, numbness, tingling, fatigue, urinary symptoms, mood disorders. ROS positive for right knee pain and stiffness. Admission Exam Per Admitting Provider Constitutional: well developed and well nourished; no acute distress Eyes: PERRL, conjunctivae normal, anicteric sclerae ENMT: external ear and nose normal, oropharynx normal Neck: trachea midline, no thyromegaly Respiratory: normal respiratory effort, lungs clear to auscultation Cardiovascular: RRR, no murmur, no edema Musculoskeletal: Right knee: Varus alignment. mild effusion. Tenderness medial joint line. ROM 0- 135 degrees. Stable to valgus and varus stress. Emilie's is guarded. Skin: no rashes, warm and dry Neurologic: patellar DTR's 2+ bilat, sensation intact Psychiatric: A+Ox3, euthymic affect Principal Diagnosis Right knee osteoarthritis Discharge Exam Right knee dressing is intact, bloody drainage from drain site, hemovac pulled out. This was removed. Incision is well approximated with no drainage, no erythema. New dressing was applied. No calf tenderness. Toes mobile with good DF, able to do SLR. Distally n/v status and sensation grossly intact. Discharge Data Allergies Allergy/AdvReac Type Severity Reaction Status Date / Time Sulfa (Sulfonamide Allergy systemic Verified 04/21/23 05:38 Antibiotics) yeast infection, rash Consultations 04/21/23 11:01 Consult Hospitalist Routine Procedures Performed Operation Date: 04/21/23 07:00 Actual Procedures p Right Total Knee Arthroplasty(Right) - Maverick Zavala MD Ordered Studies 04/21/23 05:00 US - OR guided needle placemen Routine Hospital Course (1) S/P total knee arthroplasty: POD#1 right TKA -PT/OT -Pain management as written -DVT prophylaxis-SCDs, TEDs, ASA 81mg BID -AM labs-hemoglobin at 12 this am. Leukocytosis likely reactive due to surgical stress vs perioperative steroids. Mild hyponatremia, Na at 131. Patient is asymptomatic. She states she runs low. -D/c planning-home with HH when stable. Plan on d/c today if progresses well with PT and okay with medicine team. Lab Results 04/22/23 Range/Units 05:32 WBC 14.89 H (4.8-10.8) K/ul RBC 3.97 L (4.20-5.40) M/uL Hgb 12.0 (12.0-16.0) g/dl Hct 34.3 L (37.0-47.0) % MCV 86.4 (80.0-100.0) fL MCH 30.2 (25.0-34.0) pg MCHC 35.0 (32.0-36.0) g/dL RDW Std Deviation 38.2 (36.4-46.3) fL RDW Coeff of Ashley 12.0 (11.5-14.5) % Plt Count 211 (130-400) K/uL MPV 9.8 (9.4-12.4) fL Sodium 131 L (136-145) mmol/L Potassium 4.5 (3.5-5.1) mmol/L Chloride 100 (98-107) mmol/L Carbon Dioxide 25 (21-32) mmol/L Anion Gap 6 (3-11) BUN 17 (6-23) mg/dl Creatinine 0.87 (0.6-1.2) mg/dl Est Cr Clr Drug Dosing 57.2 ml/min Est GFR ( Amer) 79.3 ml/min Est GFR (Non-Af Amer) 68.5 ml/min BUN/Creatinine Ratio 19.5 (10-20) Glucose 130 H (70-99(Fasting)) mg/dl Calcium 8.8 (8.6-10.3) mg/dl Phosphorus 3.8 (2.5-4.9) mg/dl Magnesium 1.9 (1.7-2.4) mg/dl Total Time Total Time Spent Total Time Spent (In Minutes): 20 Discharge Plan Discharge Items Patient Disposition: Home - Home Health Services Reason For Visit: Osteoarthritis Knee Right Discharge Diagnosis: Right knee osteoarthritis Activity: Per Instructions section Non-emergency contact: Surgeon Call non-emergency contact if: you have any medication questions, your pain is not controlled, your pain is concerning for you, you have a fever, your temperature is above 101, your wound has increased redness and your wound has increased drainage Follow-up/Referrals: Elizabeth Sheffield PA-C [Primary Care Provider] - Diet: Regular Addtl Attending Provider Instructions: ACTIVITY RECOMMENDATIONS: SELF CARE INSTRUCTIONS AFTER TOTAL KNEE REPLACEMENT A. You may need to continue a physical therapy program after discharge from the hospital. There are several options available to you. Your doctor will assist you in selecting the best one for you. 1. An out-patient facility 2 to 3 times a week for therapy or home therapy. 2. Continue working on all exercises taught to you in the hospital. Your goals should be to increase bending of your knee to 90 degrees and beyond and to fully straighten your knee. B. You may progress at your own pace from walking with a walker or crutches to a cane; then to no assistive devices. C. Make walking a part of your daily routine. Be up as much as comfortable with rest periods throughout the day. Rest with leg elevation is very important. Use the ice wrap frequently for the first 3-4 weeks. D. There are no restrictions on activities. You may ride in a car, shop, participate in patient resource specialist and all social activities. E. Wear the long elastic stockings (ROSEMARY hose) 20 hours a day for 2 weeks after surgery. They can be removed several times a day for laundering and for a bath. F. You may shower, no tub baths until cleared by your doctor. SPECIAL CARE INSTRUCTIONS: VERY IMPORTANT TO READ AND REVIEW A. There are a few signs you need to watch for after you are home. Call [facility] [place] if you notice any of the followin. Increased severe knee pain. Some pain is expected especially when you exercise. 2. Increased swelling in your leg or knee; pain or swelling of the calf muscle in either lower leg. 3. Any fluid drainage from the incision. 4. Shortness of breath or chest pain. B. Please call [facility] at if you have any concerns or questions about your operation or recovery. The doctor or his nurse will return your call promptly. C. You must take antibiotics before dental work, bladder, bowel or other surgery. Your doctor will provide you with a permanent care to carry describing this precaution. IMPORTANT: * REMEMBER TO TAKE ASPIRIN, 81 MG, TWICE DAILY FOR 4 WEEKS UNLESS OTHERWISE DIRECTED. THIS IS YOUR BLOOD THINNER. * HIGH RISK PATIENTS MAY BE PRESCRIBED A STRONGER BLOOD THINNER. THIS WILL BE PROVIDED AT DISCHARGE. * CALL IF INCREASED PAIN, REDNESS, DRAINAGE OR FEVER GREATER THAT 101. * WEAR ROSEMARY HOSE 20 HOURS PER DAY FOR 2 WEEKS. You should perform daily dressing changes. You may get incision wet in the shower after 72 hours. Do not soak or submerge incision IF INCISION IS LEAKING THROUGH DRESSING, CALL THE OFFICE . FOLLOW UP VISIT: If appointment is not already scheduled: Please call [facility] [place] to make a follow-up appointment for 2 weeks after your surgery at . Addtl Farm Specialist Provider Instructions: Your sodium was found to be on lower side. Please have your sodium level re- checked - have blood work (BMP) done either by home health nurse or at the lab. Your primary care doctor can follow up with you on those results. Stand-Alone Forms: My [facility] [place], Smoking Cessation Medications and DC Order Prescriptions: New aspirin 81 mg Tablet,Delayed Release (Dr/Ec) 81 mg PO BID Qty: 60 0RF acetaminophen [Tylenol Extra Strength] 500 mg Tablet 1,000 mg PO Q8 Qty: 60 0RF oxycodone 5 mg Tablet 5 - 10 mg PO .Q4h-6h MDD 6 PRN (Reason: pain) Qty: 30 0RF Rx Instructions: Ongoing therapy, Dr. Zavala supervising Continued atorvastatin 40 mg Tablet 40 mg PO HS donepezil [Aricept] 5 mg Tablet 5 mg PO HS riboflavin (vitamin B2) [Vitamin B-2] 100 mg Tablet 400 mg PO QAM meloxicam 15 mg Tablet 15 mg PO HS omeprazole 40 mg Capsule,Delayed Release(Dr/Ec) 40 mg PO QAM famotidine 20 mg Tablet 20 mg PO HS levothyroxine 50 mcg Tablet 50 mcg PO QAM losartan 25 mg Tablet 25 mg PO HS calcium polycarbophil [FiberCon] 625 mg Tablet 625 mg PO QAM metoprolol succinate 25 mg Tablet Extended Release 24 Hr 25 mg PO HS magnesium 200 mg Tablet 400 mg PO QAM cholecalciferol (vitamin D3) [Vitamin D3] 50 mcg (2,000 unit) Capsule 50 mcg PO QAM omega 9-tep-pgu-fish oil [Fish Oil] 1,200 (144-216) mg Capsule 1 cap PO QAM gabapentin 300 mg Tablet Extended Release 24 Hr 300 mg PO HS biotin 5,000 mcg Tablet,Disintegrating 5,000 mcg PO QAM lorazepam [Ativan] 0.5 mg Tablet 0.5 mg PO HS PRN (Reason: sleep/anxiety) diphenhydramine HCl [Benadryl] 25 mg Capsule 25 mg PO HS PRN (Reason: allergies) Patient Comments: currently taking daily sumatriptan succinate 50 mg tablet 50 mg PO UD Rx Instructions: see complex instructions as above Admission Data Admit Date/Time: 04/21/23 09:38 Attending Provider: Maverick Zavala Admit Provider: Maverick Zavala Primary Care Provider: Elizabeth Sheffield Other Providers: Brendan Lezama; Chris,Home Health Other Interventions: Discharge Summary Assessment (RN) Last Done: 04/22/23 11:41
[2023-04-22] MEDS ORDERED: LOSARTAN POTASSIUM 25 MG TAB PO SCH (21:00)
== END 2023-04-22 12:44 | disposition home health service (06) ==
LOC: ASU 05:13 → 3E 05:13
DX: Z79.899 Other long term (current) drug therapy; F03.90 Unspecified dementia, unspecified severity, without behavioral disturbance, psychotic disturbance, mood disturbance, and anxiety; E03.9 Hypothyroidism, unspecified; Z88.2 Allergy status to sulfonamides; I12.9 Hypertensive chronic kidney disease with stage 1 through stage 4 chronic kidney disease, or unspecified chronic kidney disease; N18.30 Chronic kidney disease, stage 3 unspecified; M17.11 Unilateral primary osteoarthritis, right knee; F41.1 Generalized anxiety disorder; G43.909 Migraine, unspecified, not intractable, without status migrainosus; E78.00 Pure hypercholesterolemia, unspecified; Z79.890 Hormone replacement therapy